=== PATIENT | female | born 1940 | race Caucasian/White ===

== ENCOUNTER 2018-01-11 02:56 | Inpatient (IN) | payer OTHER ==
[~2018-01-11] VITALS: Ht 154.9 cm; Wt 66.7 kg
[2018-01-11] VITALS (9 sets, daily range): BP systolic 160–188; BP diastolic 50–73
--- NOTE | ~2018-01-11 | CON ---
[place], [place] REPORT OF CONSULTATION NAME: CARLEEN CARD UNIT #: [id number] ROOM: 518 DOCTOR: WILL CHERYTOMASZ BIRTHDATE: [birth year] DOS: 01/13/2018 REASON FOR CONSULTATION: CHF and bradycardia. HISTORY OF PRESENT ILLNESS: The patient is a 77-year-old patient with history of congestive heart failure, COPD, valvular heart disease, diabetes, hypertension, presented to the Emergency Room for shortness of breath. Apparently, she woke up with sudden onset of shortness of breath as well as some abdominal pain as well as some fatigue. She has history of congestive heart failure, valvular heart disease, and hypertension. In the Emergency Room, she was found to be bradycardic and she was treated with diuretics and was admitted to the hospital and Cardiology consult for any further recommendations. Her main complaint is shortness of breath and some abdominal discomfort. At the time of examination, the patient was comfortable. Denies any chest pain, shortness of breath. No PND, no orthopnea. No palpitation or dizziness. No nausea or vomiting. REVIEW OF SYSTEMS: Review of the 10 system negative except as mentioned above. PAST MEDICAL HISTORY: 1. Valvular heart disease with aortic stenosis and mitral regurgitation. 2. Hypertension. 3. Diabetes type 2. 4. Chronic kidney disease. 5. Chronic obstructive pulmonary disease. 6. Sinus bradycardia. 7. Non-morbid obesity. 8. Osteoarthritis. 9. Chronic diastolic heart failure. PAST SURGICAL HISTORY: History of appendicectomy, cholecystectomy, hip replacement, back surgery and shoulder replacement. SOCIAL HISTORY: The patient is a former smoker, quit in December 2017. The patient does not drink, does not use illicit drugs. FAMILY HISTORY: Noncontributory due to her age and her medical history. Father from heart disease. Mother from stroke. ALLERGIES: Reviewed. HOME MEDICATIONS: Reviewed. PHYSICAL EXAMINATION: VITAL SIGNS: Blood pressure 151/48, pulse 56, respiration 16, weight 74.2 kilos with a BMI 30.9. GENERAL: Alert, comfortable, in no acute distress. HEENT: Pupils are round and equal. No jaundice. NECK: Supple, no distended neck veins, no carotid bruit. CHEST: Symmetrical, nontender. [place], [place] REPORT OF CONSULTATION NAME: CARLEEN CARD UNIT #: [id number] ROOM: 518 DOCTOR: WILL CHERY,TOMASZ BIRTHDATE: [birth year] LUNGS: Clear to auscultation bilaterally. HEART: Regular rhythm, no S3, grade 2/6 systolic murmur heard all over the precardium. ABDOMEN: Benign, nontender. Bowel sounds normal. EXTREMITIES: Showed no edema. Distal pulses are palpable. SKIN: Warm and dry. No cyanosis, no clubbing. RECTAL: Deferred. NEUROLOGIC: The patient is alert, oriented. PSYCHIATRIC: The patient is alert, oriented with good mood and effort. REVIEW OF THE DIAGNOSTIC TESTS: EKG showed sinus rhythm, sinus bradycardia, rate of 49. CBC, chemistry and imaging studies reviewed. Cardiac enzymes unremarkable. TSH was normal. Creatinine 1.5, magnesium 1.8. IMPRESSION: 1. Acute on chronic diastolic heart failure, mostly resolved. 2. Sinus bradycardia. We will discontinue her beta blockers and monitor heart rates TSH is normal. 3. Aortic stenosis. Echo showed moderate aortic stenosis. 4. Mild mitral regurgitation. 5. Hypertension. Monitor her blood pressures. 6. Chronic kidney disease. 7. Nonmorbid obesity. 8. Chronic obstructive pulmonary disease. The patient quit smoking last month. RECOMMENDATIONS: 1. A 2D echo was reviewed and the findings were discussed with her. 2. Increase hydralazine to 50 mg twice a day for blood pressure control since we had discontinued her metoprolol. 3. Lexiscan stress test today. 4. If the stress test is unremarkable and the patient is stable, she can be discharged home later today or tomorrow. 5. There is no family at bedside at the time of my examination. 6. Above treatment plan, I have discontinued her metoprolol including hydralazine and the stress test was discussed with her. TOMASZ SOLIS MD CM:CONSTR:REPORT OF CONSULTATION 0613 01/14/18 1036 interface
--- NOTE | ~2018-01-11 | PR ---
[place], [place] PROGRESS NOTE NAME: CARLEEN CARD UNIT #: [id number] ROOM: 518 DOCTOR: WILL CHERYRANDEEDULCE BIRTHDATE: [birth year] DOS: 01/15/2018 CARDIOLOGY FOLLOWUP VISIT NOTE REASON FOR VISIT: Congestive heart failure, valvular heart disease. SUBJECTIVE: The patient denies any chest pain. Her breathing is better. No PND, no orthopnea, no nausea or vomiting. No dizziness or syncope. REVIEW OF SYSTEMS: Review of the 8 systems negative except as mentioned above. PHYSICAL EXAMINATION: VITAL SIGNS: Blood pressure 123/52, pulse 75, respiratory rate is 20, , the patient in sinus rhythm. GENERAL: The patient is alert, comfortable, in no acute distress. HEAD AND NECK: Neck supple, no distended neck veins, no carotid bruit. Pupils are round and equal. No jaundice. CHEST: Symmetrical, nontender. LUNGS: Clear to auscultation bilaterally. HEART: Regular rhythm, no S3. Grade 2/6 systolic murmur. No palpable thrills. ABDOMEN: Benign, nontender. Bowel sounds normal. EXTREMITIES: Showed 1+ edema and distal pulses are palpable. SKIN: Warm and dry. No cyanosis, no clubbing. MEDICATIONS AND LABORATORIES: Reviewed. IMPRESSION: New onset atrial fibrillation, currently sinus rhythm. The patient was on renal dose, adjusted on Xarelto. Discontinue intravenous Cardizem and started on p.o. Cardizem 120 mg once daily, monitor heart rate and blood pressure. The patient developed recurrent bradycardia and she will need a permanent pacemaker. 2. Valvular heart disease, aortic stenosis, stable. 3. Abnormal stress test with inferior ischemia. The patient is asymptomatic, no chest pain and high risk for cardiac catheterization due to her chronic kidney disease and the patient would like to stay on the medical therapy at this time. If she does have recurrent chest pains, then she will need cardiac catheterization. 4. Chronic kidney disease. 5. Anemia. 6. Hypertension. 7. History of sinus bradycardia, resolved after discontinuing the metoprolol. 8. Continue current medication 9. She can be discharged home from the cardiac standpoint and we will follow her in the office in 1-2 weeks. 10. There is no family at the bedside at the time of examination. [place], [place] PROGRESS NOTE NAME: CARLEEN CARD UNIT #: [id number] ROOM: 518 DOCTOR: TOAMSZ SOLIS MD BIRTHDATE: [birth year] TOMASZ SOLIS MD CM:PNTRANS [id number] TOMASZ SOLIS MD 01/16/18105 interface
--- NOTE | ~2018-01-11 | ST ---
[place], [place] EXERCISE STRESS TEST REPORT NAME: CARLEEN CARD UNIT #: [id number] ROOM: 518 DOCTOR: WILL CHERY,TOMASZ BIRTHDATE: [birth year] DOS: 01/13/2018 REASON FOR TEST: The patient with congestive heart failure and valvular heart disease. PHYSICAL EXAMINATION: NECK: Supple. LUNGS: Clear anteriorly. HEART: Regular rhythm, grade 2/6 systolic murmur. PROTOCOL: Lexiscan protocol. Maximum heart rate 100, peak blood pressure 144/38. SYMPTOMS: The patient with chest pain. ELECTROCARDIOGRAM: Resting EKG sinus rhythm with nonspecific ST-T changes. Stress EKG showed inferolateral ST depression 0.5-1 mm, partially resolved. Clinically, the patient is chest pain free. CONCLUSION: Clinically, the patient was chest pain free. EKG showed 0.5-[address] depression in the inferolateral leads. POST-STRESS COMPLICATIONS: None. The patient received a total of 0.4 mg Lexiscan. TOMASZ SOLIS MD CM:STRESS:EXERCISE STRESS TEST REPORT [id number] TOMASZ SOLIS MD
--- NOTE | ~2018-01-11 | PR ---
[place], [place] PROGRESS NOTE NAME: CARLEEN CARD UNIT #: [id number] ROOM: 518 DOCTOR: WILL CHERY,TOMASZ BIRTHDATE: [birth year] DOS: 01/14/2018 REASON FOR VISIT: Bradycardia and congestive heart failure. SUBJECTIVE: The patient denies any chest pain, dizziness or palpitations. No PND, no orthopnea. She was seen by Dr. Phillips for her renal condition. REVIEW OF SYSTEMS: Review of the 10 systems negative except as mentioned above. PHYSICAL EXAMINATION: VITAL SIGNS: Blood pressure 146/60, pulse 130 at the time of examination, respirations 18, weight 66.7 kilos. RHYTHM STRIPS: The patient was sinus rhythm and currently in atrial fibrillation with rapid ventricular. GENERAL: The patient is alert, oriented, no acute distress. She ____ her heart is racing. HEENT: Pupils are round and equal. No jaundice. NECK: Supple, no distended neck veins, no carotid bruit. CHEST: Symmetrical, nontender. LUNGS: Few scattered rhonchi. HEART: Irregularly irregular, grade 2/6 systolic ejection murmur. No S3. ABDOMEN: Benign, nontender. Bowel sounds normal. EXTREMITIES: Showed no edema. Distal pulses palpable. SKIN: Warm and dry. No cyanosis, no clubbing. Medications and her labs are reviewed. IMPRESSION: 1. New onset atrial fibrillation with rapid ventricular rate. 2. Abnormal stress test with inferior wall ischemia. 3. Sinus bradycardia, resolved. 4. Anemia. 5. Chronic kidney disease. 6. Mitral regurgitation. 7. Acute on chronic diastolic heart failure, stable. RECOMMENDATIONS: 1. Rate control with IV Cardizem and monitor heart rate and blood pressures. 2. Her CHADS2-VASc score is high. She was also started on Xarelto 20 mg once a day. I would decrease to 50 mg due to her creatinine clearance less than 50, so change the Xarelto to 50 mg once daily. Risks, benefits of the Xarelto as well as complications discussed and she is agreeable. 3. Abnormal stress test findings are discussed. She appears to have inferior wall ischemia, but she is currently asymptomatic without any chest pain and also due to her chronic kidney disease, she will be high risk for any contrast procedures such as cardiac catheterization, angioplasty and stent and she would like to stay with medical therapy at this time; however, if develops any recurrent ____ chest pain, she will need a cardiac catheterization in the future. 4. Valvular heart disease, continue to monitor valvular heart disease and do [place], [place] PROGRESS NOTE NAME: CARLEEN CARD UNIT #: [id number] ROOM: 518 DOCTOR: WILL CHERY,TOMASZ BIRTHDATE: [birth year] echocardiograms as needed. 5. She is also following with a account services coordinator for her chronic kidney disease. 6. Possible discharge tomorrow if she is stable and if her rates are controlled. 7. There is no family at bedside at the time of my examination. TOMASZ SOLIS MD CM:PNLYNDA [id number] TOMASZ SOLIS MD 01/16/18 0330 interface
[2018-01-11 03:33] LABS: BASO # 0.1 10*3/uL (0.0-0.1); BASO % 0.6 % (0.0-1.0); EOS # 0.2 10*3/uL (0.0-0.4); EOS % 2.6 % (1.0-4.0); HEMATOCRIT 31.2 % (37.0-47.0); HEMOGLOBIN 9.9 g/dl (12.0-16.0); LYMPH # 1.6 10*3/uL (1.3-4.4); MEAN CORPUSCULAR HGB 28.9 pg (27.0-31.0); MEAN CORPUSCULAR HGB CONC 31.7 g/dl (33.0-37.0); MEAN PLATELET VOLUME 8.6 fl (9.6-12.3); MONO # 0.7 10*3/uL (0.1-1.0); MONO % 7.7 % (3.0-9.0); NEUT # 5.9 10*3/uL (2.3-7.9); NEUT % 69.6 % (47.0-73.0); PLATELET COUNT AUTOMATED 273 10*3/uL (130-400); RED BLOOD COUNT 3.43 10*6/uL (4.10-5.10); RED CELL DISTRI WIDTH 13.2 % (0-14.5); WHITE BLOOD COUNT 8.5 10*3/uL (4.8-10.8)
[2018-01-11 03:49] LABS: ALBUMIN 3.4 gm/dl (3.1-4.5); ALKALINE PHOSPHATASE 120 U/L (45-117); BUN 31 mg/dl (7-24); CHLORIDE 102 mmol/L (98-107); CREATININE 1.62 mg/dL (0.55-1.02); LIPASE 104 U/L (73-393); POTASSIUM 4.1 mmol/L (3.5-5.1); SGOT/AST 21 IU/L (3-35); SGPT/ALT 19 U/L (12-78); SODIUM 137 mmol/L (136-145); TOTAL PROTEIN 6.8 gm/dL (6.4-8.2)
[2018-01-11 03:51] LABS: TROPONIN I < 0.015 ng/ml (<0.045)
[2018-01-11 03:55] LABS: BILIRUBIN NEGATIVE (NEGATIVE); BLOOD NEGATIVE (NEGATIVE); CLARITY CLEAR (CLEAR); COLOR YELLOW (YELLOW); GLUCOSE NEGATIVE (NEGATIVE); KETONE NEGATIVE (NEGATIVE); LEUKO ESTERASE NEGATIVE (NEGATIVE); NITRITE NEGATIVE (NEGATIVE); SPECIFIC GRAVITY 1.015 (1.005-1.030); UROBILINOGEN 0.2 E.U./dl (0.2-1.0)
[2018-01-11] MEDS ORDERED: CLONIDINE0.3 MG PO (17:21)
[2018-01-11] MEDS ORDERED: HYDR25T PO (17:22)
[2018-01-11] MEDS ORDERED: AMLODIPINE BESY10 MG PO (17:22)
[2018-01-11] MEDS ORDERED: APRESOLINE25 MG PO (17:23)
[2018-01-11] MEDS ORDERED: LEVOXYL112 MCG PO (17:23)
[2018-01-11] MEDS ORDERED: TOPROL XL25 MG PO (17:23)
[2018-01-11] MEDS ORDERED: MIRAPEX0.25 M1 PO (17:24)
[2018-01-11] MEDS ORDERED: PRILOSEC20 M1 PO (17:24)
[2018-01-11] MEDS ORDERED: SIMVASTATIN20 MG PO (17:24)
[2018-01-11] MEDS ORDERED: VICO75300 PO (17:25)
[2018-01-11] MEDS ORDERED: IRON18 MG PO (17:25)
[2018-01-11] MEDS ORDERED: VITAMIN D-32000 UNIT PO (17:26)
[2018-01-12] VITALS (8 sets, daily range): BP systolic 152–228; BP diastolic 50–80
[2018-01-12 07:20] LABS: CREATININE 1.51 mg/dL (0.55-1.02); PHOSPHOROUS 2.9 mg/dL (2.5-4.9); POTASSIUM 3.4 mmol/L (3.5-5.1)
[2018-01-12 07:23] LABS: BASO % 0.2 % (0.0-1.0); HEMATOCRIT 32.2 % (37.0-47.0); HEMOGLOBIN 10.2 g/dl (12.0-16.0); LYMPH % 17.3 % (27.0-41.0); MEAN CELL VOLUME 89.7 fl (81.0-99.0); MEAN CORPUSCULAR HGB 28.4 pg (27.0-31.0); MEAN CORPUSCULAR HGB CONC 31.7 g/dl (33.0-37.0); MEAN PLATELET VOLUME 9.2 fl (9.6-12.3); MONO # 0.9 10*3/uL (0.1-1.0); MONO % 7.8 % (3.0-9.0); NEUT # 8.3 10*3/uL (2.3-7.9); NEUT % 74.3 % (47.0-73.0); PLATELET COUNT AUTOMATED 307 10*3/uL (130-400); RED BLOOD COUNT 3.59 10*6/uL (4.10-5.10); RED CELL DISTRI WIDTH 13.2 % (0-14.5); WHITE BLOOD COUNT 11.2 10*3/uL (4.8-10.8)
[2018-01-12 07:28] LABS: FREE T4 1.18 ng/dl (0.76-1.46); THYROID STIM HORMONE (HS) 0.434 uIU/ml (0.358-4.75)
[2018-01-12 09:17] LABS: VITAMIN D, 25-HYDROXY 24.9 ng/mL (30-100)
[2018-01-13] VITALS: BP 151/48
[2018-01-13 08:00] VITALS: BP 200/80
[2018-01-13 12:00] VITALS: BP 149/60
[2018-01-13 12:05] LABS: BASO # 0.1 10*3/uL (0.0-0.1); BASO % 0.6 % (0.0-1.0); EOS # 0.1 10*3/uL (0.0-0.4); EOS % 1.1 % (1.0-4.0); HEMATOCRIT 33.3 % (37.0-47.0); HEMOGLOBIN 10.6 g/dl (12.0-16.0); LYMPH # 1.6 10*3/uL (1.3-4.4); LYMPH % 19.3 % (27.0-41.0); MEAN CELL VOLUME 89.5 fl (81.0-99.0); MEAN CORPUSCULAR HGB 28.5 pg (27.0-31.0); MEAN CORPUSCULAR HGB CONC 31.8 g/dl (33.0-37.0); MEAN PLATELET VOLUME 8.6 fl (9.6-12.3); MONO # 0.8 10*3/uL (0.1-1.0); MONO % 9.2 % (3.0-9.0); NEUT # 5.7 10*3/uL (2.3-7.9); NEUT % 69.4 % (47.0-73.0); PLATELET COUNT AUTOMATED 290 10*3/uL (130-400); RED BLOOD COUNT 3.72 10*6/uL (4.10-5.10); RED CELL DISTRI WIDTH 13.2 % (0-14.5); WHITE BLOOD COUNT 8.2 10*3/uL (4.8-10.8)
[2018-01-13 12:28] LABS: CREATININE 1.48 mg/dL (0.55-1.02); POTASSIUM 3.1 mmol/L (3.5-5.1)
[2018-01-13 16:00] VITALS: BP 120/62
[2018-01-13 20:00] VITALS: BP 146/64
[2018-01-14] VITALS: BP 168/64
[2018-01-14 08:00] VITALS: BP 144/75
[2018-01-14 09:20] LABS: CREATININE 1.62 mg/dL (0.55-1.02); PHOSPHOROUS 3.8 mg/dL (2.5-4.9); POTASSIUM 3.9 mmol/L (3.5-5.1)
[2018-01-14 09:23] LABS: ALBUMIN 3.5 gm/dl (3.1-4.5)
[2018-01-14 12:00] VITALS: BP 148/60
[2018-01-14 16:00] VITALS: BP 154/77
[2018-01-14 20:00] VITALS: BP 142/57
[2018-01-15] VITALS: BP 123/52
[2018-01-15 07:34] LABS: POTASSIUM 3.7 mmol/L (3.5-5.1)
[2018-01-15 07:35] LABS: CREATININE 1.83 mg/dL (0.55-1.02)
[2018-01-15 08:00] VITALS: BP 148/55
[2018-01-15 12:00] VITALS: BP 146/60
[2018-01-15] MEDS ORDERED: HYDRALAZINE HYD50 MG PO (13:57)
[2018-01-15] MEDS ORDERED: LASIX20 MG PO (13:57)
[2018-01-15] MEDS ORDERED: XARE15TA PO (13:57)
[2018-01-15] MEDS ORDERED: CARDIZEM120 MG PO (13:57)
[2018-01-15 16:00] VITALS: BP 130/56
== END 2018-01-15 17:20 | disposition home or self-care (01) | DRG 291 ==
LOC: ED 02:56 → EDHOLD 04:09 → 5E 04:09
PROVIDERS: Emergency Medicine Emergency Medical Services; Internal Medicine; Student in an Organized Health Care Education/Training Program
PROC: 4A02XM4 Measurement of Cardiac Total Activity, External Approach (ICD-10-PCS; principal; 2018-01-14)
DX: I13.0 Hypertensive heart and chronic kidney disease with heart failure and stage 1 through stage 4 chronic kidney disease, or unspecified chronic kidney disease (principal); N17.0 Acute kidney failure with tubular necrosis; I50.33 Acute on chronic diastolic (congestive) heart failure; E11.22 Type 2 diabetes mellitus with diabetic chronic kidney disease; E11.65 Type 2 diabetes mellitus with hyperglycemia; I48.91 Unspecified atrial fibrillation; D64.9 Anemia, unspecified; D72.810 Lymphocytopenia; E03.9 Hypothyroidism, unspecified; M19.90 Unspecified osteoarthritis, unspecified site; N18.9 Chronic kidney disease, unspecified; R00.1 Bradycardia, unspecified; I34.0 Nonrheumatic mitral (valve) insufficiency; M79.662 Pain in left lower leg; E66.9 Obesity, unspecified; F17.200 Nicotine dependence, unspecified, uncomplicated; J44.9 Chronic obstructive pulmonary disease, unspecified; I35.0 Nonrheumatic aortic (valve) stenosis; Z96.612 Presence of left artificial shoulder joint; Z96.611 Presence of right artificial shoulder joint; Z96.643 Presence of artificial hip joint, bilateral; Z88.0 Allergy status to penicillin; Z88.1 Allergy status to other antibiotic agents; Z82.49 Family history of ischemic heart disease and other diseases of the circulatory system; Z82.3 Family history of stroke; Z83.3 Family history of diabetes mellitus; Z80.1 Family history of malignant neoplasm of trachea, bronchus and lung; Z90.49 Acquired absence of other specified parts of digestive tract; Z90.710 Acquired absence of both cervix and uterus; Z68.31 Body mass index [BMI] 31.0-31.9, adult; Z79.84 Long term (current) use of oral hypoglycemic drugs

== ENCOUNTER → 2018-10-29 | Outpatient (CLI) | payer OTHER ==
[~2018-10-29] MED LIST: AMLODIPINE BESY10 MG PO; APRESOLINE25 MG PO; CARDIZEM120 MG PO; CLONIDINE0.3 MG PO; HYDR25T PO; HYDRALAZINE HYD50 MG PO; IRON18 MG PO; LASIX20 MG PO; LEVOXYL112 MCG PO; MIRAPEX0.25 M1 PO; PRILOSEC20 M1 PO; SIMVASTATIN20 MG PO; TOPROL XL25 MG PO; VICO75300 PO; VITAMIN D-32000 UNIT PO; XARE15TA PO
[2018-10-29 12:33] LABS: BASO % 0.4 % (0.0-1.0); EOS # 0.2 10*3/uL (0.0-0.4); EOS % 1.4 % (1.0-4.0); HEMATOCRIT 33.6 % (37.0-47.0); LYMPH # 1.8 10*3/uL (1.3-4.4); LYMPH % 16.9 % (27.0-41.0); MEAN CELL VOLUME 89.1 fl (81.0-99.0); MEAN CORPUSCULAR HGB 29.2 pg (27.0-31.0); MEAN CORPUSCULAR HGB CONC 32.7 g/dl (33.0-37.0); MEAN PLATELET VOLUME 9.3 fl (9.6-12.3); MONO # 0.8 10*3/uL (0.1-1.0); MONO % 7.5 % (3.0-9.0); NEUT # 7.6 10*3/uL (2.3-7.9); NEUT % 73.3 % (47.0-73.0); PLATELET COUNT AUTOMATED 321 10*3/uL (130-400); RED BLOOD COUNT 3.77 10*6/uL (4.10-5.10); RED CELL DISTRI WIDTH 13.8 % (0-14.5); WHITE BLOOD COUNT 10.4 10*3/uL (4.8-10.8)
[2018-10-29 12:54] LABS: ALBUMIN 3.1 gm/dl (3.1-4.5); CREATININE 1.57 mg/dL (0.55-1.02)
[2018-10-29 13:00] LABS: FREE T4 1.57 ng/dl (0.76-1.46); THYROID STIM HORMONE (HS) 0.251 uIU/ml (0.358-4.75)
== END | disposition home or self-care (01) ==
LOC: LAB 11:26
PROVIDERS: Family Medicine
DX: E11.9 Type 2 diabetes mellitus without complications (principal); E78.49 Other hyperlipidemia; E03.9 Hypothyroidism, unspecified

== ENCOUNTER 2019-03-05 18:49 | Inpatient (IN) | payer OTHER ==
[~2019-03-05] VITALS: Ht 154.9 cm; Wt 74.1 kg
--- NOTE | ~2019-03-05 | EKG ---
[place], [place] ELECTROCARDIOGRAM REPORT NAME: CARLEEN CARD UNIT #: [id number] ROOM: 422 DOCTOR: BENTON DRAFT REPORT BIRTHDATE: [birth year] [facility] Test Date: 2019-03-05 Test Time: 19:35:08 Pat Name: CARLEEN CARD Department: ER Room: 422 Gender: F Rn Lactation Consultant: Elijah Mena : 1940 Requested By: LUCÍA PÉREZ Order Number: [id number] Reading MD: Yordy Mir Measurements Intervals [place] Rate: 62 P: 40 KS: 177 QRS: 1 QRSD: 91 T: 52 QT: 462 QTc: 470 Interpretive Statements Sinus rhythm LVH with secondary repolarization abnormality Electronically Signed On 03-10-2019 12:53:13 PDT by Yordy Mir CM:EKGRPT:ELECTROCARDIOGRAM REPORT [id number] LUCÍA CULVER DRAFT REPORT LUCÍA PÉREZ DO
[2019-03-05 18:54] VITALS: BP 217/69
[2019-03-05 20:09] LABS: BASO % 0.3 % (0.0-1.0); EOS % 0.1 % (1.0-4.0); HEMATOCRIT 33.6 % (37.0-47.0); HEMOGLOBIN 11.1 g/dl (12.0-16.0); LYMPH # 0.6 10*3/uL (1.3-4.4); LYMPH % 5.4 % (27.0-41.0); MEAN CELL VOLUME 91.3 fl (81.0-99.0); MEAN CORPUSCULAR HGB 30.2 pg (27.0-31.0); MEAN PLATELET VOLUME 8.9 fl (9.6-12.3); MONO # 0.8 10*3/uL (0.1-1.0); MONO % 8.1 % (3.0-9.0); NEUT # 8.9 10*3/uL (2.3-7.9); NEUT % 85.5 % (47.0-73.0); PLATELET COUNT AUTOMATED 423 10*3/uL (130-400); RED BLOOD COUNT 3.68 10*6/uL (4.10-5.10); RED CELL DISTRI WIDTH 14.2 % (0-14.5); WHITE BLOOD COUNT 10.4 10*3/uL (4.8-10.8)
--- NOTE | 2019-03-05 20:14 | NUR ---
PT REPORTS RELIEF FROM N/V AND PAIN HAS RESOLVED.
[2019-03-05 20:24] LABS: ALBUMIN 3.2 gm/dl (3.1-4.5); ALKALINE PHOSPHATASE 673 U/L (45-117); BUN 27 mg/dl (7-24); CHLORIDE 100 mmol/L (98-107); CREATININE 1.78 mg/dL (0.55-1.02); LIPASE 107 U/L (73-393); POTASSIUM 3.2 mmol/L (3.5-5.1); SGOT/AST 665 IU/L (3-35); SGPT/ALT 426 U/L (12-78); SODIUM 138 mmol/L (136-145); TOTAL PROTEIN 7.5 gm/dL (6.4-8.2)
[2019-03-05 20:26] LABS: TROPONIN I < 0.015 ng/ml (<0.045)
[2019-03-05 20:31] LABS: BILIRUBIN NEGATIVE (NEGATIVE); BLOOD NEGATIVE (NEGATIVE); CLARITY CLEAR (CLEAR); COLOR YELLOW (YELLOW); GLUCOSE NEGATIVE (NEGATIVE); KETONE NEGATIVE (NEGATIVE); LEUKO ESTERASE NEGATIVE (NEGATIVE); NITRITE NEGATIVE (NEGATIVE); SPECIFIC GRAVITY 1.015 (1.005-1.030)
[2019-03-05 20:37] LABS: BACTERIA TRACE; WBC 0-2 wbc/hpf (0-5)
[2019-03-05 20:57] VITALS: BP 188/62
[2019-03-05 23:05] VITALS: BP 190/64
--- NOTE | 2019-03-05 23:34 | NUR ---
PT RESTING IN BED.DENIES ANY NEEDS.PT STATES SHE TAKES BP MEDICATION AT HOME IN EVENING.FAMILY AT BEDSIDE.PT UPDATED ON CURRENT PLAN OF CARE.
[2019-03-06] VITALS (8 sets, daily range): BP systolic 140–220; BP diastolic 31–78
--- NOTE | 2019-03-06 00:40 | NUR ---
ALUMINUM CONTAINER TESTER CONTACTED FOR MEDICATION PER EMAR ODER.
--- NOTE | 2019-03-06 01:06 | NUR ---
FAMILY PASSWORD "MOONLIGHT 1".
--- NOTE | 2019-03-06 01:12 | NUR ---
PT MEDICATED WITH 10MG HYDRALAZINE IV PER MD VERBAL ORDER.
--- NOTE | 2019-03-06 01:15 | NUR ---
A 78, admitted to , under the services of SHANKAR Najera DO with a diagnosis of TRANSAMINITIS, ABDOMINAL PAIN. Chief complaint is ABDOMINAL PAIN. Patient arrived via ambulatory from ER. Monitor applied. Initial assessment completed. Vital signs taken and recorded. SHANKAR NAJERA DO notified of admission to the unit. Orders received. See assessment for past medical history, medications and allergies. Patient and/or family oriented to unit. visitation policy reviewed. Clothing/patient valuable form completed. ARVIN ROBLES
[2019-03-06 01:48] LABS: BASO % 0.4 % (0.0-1.0); EOS % 0.4 % (1.0-4.0); HEMATOCRIT 33.3 % (37.0-47.0); HEMOGLOBIN 10.9 g/dl (12.0-16.0); LYMPH # 1.8 10*3/uL (1.3-4.4); LYMPH % 17.1 % (27.0-41.0); MEAN CELL VOLUME 90.7 fl (81.0-99.0); MEAN CORPUSCULAR HGB 29.7 pg (27.0-31.0); MEAN CORPUSCULAR HGB CONC 32.7 g/dl (33.0-37.0); MEAN PLATELET VOLUME 8.6 fl (9.6-12.3); MONO # 0.8 10*3/uL (0.1-1.0); MONO % 7.8 % (3.0-9.0); NEUT # 7.6 10*3/uL (2.3-7.9); NEUT % 73.9 % (47.0-73.0); PLATELET COUNT AUTOMATED 431 10*3/uL (130-400); RED BLOOD COUNT 3.67 10*6/uL (4.10-5.10); RED CELL DISTRI WIDTH 14.2 % (0-14.5); WHITE BLOOD COUNT 10.3 10*3/uL (4.8-10.8)
[2019-03-06 02:04] LABS: ALBUMIN 3.3 gm/dl (3.1-4.5); CREATININE 1.7 mg/dL (0.55-1.02); PHOSPHOROUS 3.3 mg/dL (2.5-4.9); POTASSIUM 3.5 mmol/L (3.5-5.1); TOTAL PROTEIN 7.4 gm/dL (6.4-8.2)
[2019-03-06 02:06] LABS: FREE T4 1.69 ng/dl (0.76-1.46)
[2019-03-06 02:10] LABS: THYROID STIM HORMONE (HS) 0.412 uIU/ml (0.358-4.75)
--- NOTE | 2019-03-06 03:05 | NUR ---
CLONIDINE 0.3MG HELD D/T B/P 149/31. DR. HILARIO SAID TO HOLD MED.
[2019-03-06 06:58] LABS: VITAMIN D, 25-HYDROXY 23.1 ng/mL (30-100)
[2019-03-06 07:08] LABS: ALBUMIN 2.7 gm/dl (3.1-4.5); CREATININE 1.71 mg/dL (0.55-1.02); TOTAL PROTEIN 6.6 gm/dL (6.4-8.2)
[2019-03-06 07:10] LABS: POTASSIUM 4.5 mmol/L (3.5-5.1)
--- NOTE | 2019-03-06 07:52 | NUR ---
ATTEMPTED TO CALL DR. LUNA X3. KEEPS GOING TO VOICEMAIL. WILL CONTINUE TO TRY.
--- NOTE | 2019-03-06 10:44 | NUR ---
DR. LUNA NOTIFIED OF CONSULT FOR TRANSAMINITIS AND ABDOMINAL PAIN. NEW ORDER FOR SONOGRAM OF BILIARY (LIVER US) AND CALL HIM WITH RESULTS.
[2019-03-06] MEDS ORDERED: HYDRALAZINE HYD50 MG PO (14:10)
[2019-03-06] MEDS ORDERED: NORCO 5-325 TA1 EACH PO (14:10)
[2019-03-06] MEDS ORDERED: CARDIZEM CD240 M1 PO (14:11)
[2019-03-06] MEDS ORDERED: NEURONTIN300 MG PO (14:11)
--- NOTE | 2019-03-06 14:15 | NUR ---
[facility]ALTH SYSTEM PHARMACY CALLED AT THIS TIME TO VERIFY HOME MEDICATIONS DUE TO QUESTION IN PATIENTS CARDIZEM. MED REC PROVIDED BY PHARMACY DID NOT MATCH REVIEWED MED REC FROM LAST NIGHT. DR. ALEXANDER CALLED AT THIS TIME AND MADE AWARE OF MED REC BEING UP TO DATE WITH HEALTH SYSTEM PHARMACY.
--- NOTE | 2019-03-06 16:20 | NUR ---
DR. LUNA CALLED WITH RESULTS FROM LIVER. ORDERED TO REPEAT LFT'S ON FRIDAY AND CALL HIM WITH RESULTS.
--- NOTE | 2019-03-06 20:07 | NUR ---
DR. PAZ NOTIFIED OF MANUAL BLOOD PRESSURE OF 220/78.
--- NOTE | 2019-03-06 20:57 | NUR ---
PATIENT BENDING OVER CRYING IN SEVERE ABDOMINAL/FLANK PAIN. SHE SAID IT FELT LIKE IT DID WHEN SHE WAS IN THE ER. DR. PAZ NOTIFIED AND PATIENT GIVEN DILAUDID 1MG. WILL MONITOR FOR EFFECTIVENESS. CALL LIGHT IN REACH.
--- NOTE | 2019-03-06 21:10 | NUR ---
DILAUDID EFFECTIVE AT THIS TIME. PATIENT STATES SHE IS FEELING MUCH BETTER. WILL CONTINUE TO MONITOR.
[2019-03-07] VITALS: BP 173/45
[2019-03-07 06:57] LABS: ALBUMIN 2.6 gm/dl (3.1-4.5); CREATININE 1.44 mg/dL (0.55-1.02); POTASSIUM 3.8 mmol/L (3.5-5.1); TOTAL PROTEIN 6.1 gm/dL (6.4-8.2)
[2019-03-07 07:07] LABS: BASO % 0.3 % (0.0-1.0); EOS # 0.1 10*3/uL (0.0-0.4); EOS % 0.6 % (1.0-4.0); HEMATOCRIT 29.7 % (37.0-47.0); HEMOGLOBIN 9.2 g/dl (12.0-16.0); LYMPH # 1.3 10*3/uL (1.3-4.4); LYMPH % 17.1 % (27.0-41.0); MEAN CELL VOLUME 93.7 fl (81.0-99.0); MEAN PLATELET VOLUME 9.3 fl (9.6-12.3); MONO # 0.6 10*3/uL (0.1-1.0); MONO % 8.2 % (3.0-9.0); NEUT # 5.6 10*3/uL (2.3-7.9); NEUT % 73.2 % (47.0-73.0); PLATELET COUNT AUTOMATED 355 10*3/uL (130-400); RED BLOOD COUNT 3.17 10*6/uL (4.10-5.10); RED CELL DISTRI WIDTH 14.6 % (0-14.5); WHITE BLOOD COUNT 7.7 10*3/uL (4.8-10.8)
[2019-03-07 08:00] VITALS: BP 178/80
--- NOTE | 2019-03-07 08:58 | NUR ---
ATTEMPTED TO CALL DR. LUNA AT THIS TIME TO UPDATE HIM ON PATIENTS CONDITION AND MORNING LABS REQUESTED BY DR. CUNHA. NO ANSWER FROM DR. LUNA AT THIS TIME.
--- NOTE | 2019-03-07 09:33 | NUR ---
SPOKE WITH DR. LUNA AT THIS TIME. UPDATED ON PATIENTS CONDITION AND MORNING LABS. STATES THAT HE THINKS PATIENT IS OKAY AND NOTHING NEEDS TO BE DONE AT THIS TIME. ORDERED REPEAT LFTS IN THE MORNING AND CALL HIM WITH THE RESULTS. NO NEW ORDERS RECIEVED AT THIS TIME.
[2019-03-07 12:00] VITALS: BP 167/41
[2019-03-07 13:05] LABS: HEPATITIS B SURFACE AG Negative (Negative); HEPATITIS C VIRUS ANTIBODY <0.1 s/co (0.0-0.9)
--- NOTE | 2019-03-07 18:01 | NUR ---
PATIENT PUT CERTIFIED PROFESSIONAL MIDWIFE LIGHT, STATED SHE FELT LIKE SHE WASNT GETTING ENOUGH OXYGEN. O2 SAT 96% AT THIS TIME ON 2L NC. RESPIRATIONS LABORED. LUNG SOUNDS CLEAR T/O. DR. ALEXANDER CALLED AND NOTIFIED AT THIS TIME. STATED HE WOULD COME SEE PATIENT.
[2019-03-07 18:07] VITALS: BP 178/80
[2019-03-07 20:00] VITALS: BP 155/52
--- NOTE | 2019-03-07 20:00 | NUR ---
SITTING UP IN CHAIR IN ROOM. 02 INTACT AT 2LPM VIA NASAL CANNULA; PT. VOICES NO C/O AT THIS TIME. LUNGS CLEAR BILATERALLY WITH NO COUGH NOTED AT THIS TIME. 02 SATS ARE 97%. CALL LIGHT WITHIN REACH.
--- NOTE | 2019-03-07 22:00 | NUR ---
TOOK MEDICATIONS WITHOUT DIFFICULTY; VOICES NO C/O AT THIS TIME. CALL LIGHT REMAINS WITHIN REACH.
[2019-03-08] VITALS (7 sets, daily range): BP systolic 146–199; BP diastolic 47–126
[2019-03-08 06:26] LABS: BASO % 0.3 % (0.0-1.0); EOS # 0.1 10*3/uL (0.0-0.4); EOS % 0.9 % (1.0-4.0); HEMATOCRIT 28.6 % (37.0-47.0); HEMOGLOBIN 8.9 g/dl (12.0-16.0); LYMPH # 1.5 10*3/uL (1.3-4.4); LYMPH % 16.6 % (27.0-41.0); MEAN CELL VOLUME 94.4 fl (81.0-99.0); MEAN CORPUSCULAR HGB 29.4 pg (27.0-31.0); MEAN CORPUSCULAR HGB CONC 31.1 g/dl (33.0-37.0); MEAN PLATELET VOLUME 9.1 fl (9.6-12.3); MONO # 0.7 10*3/uL (0.1-1.0); MONO % 8.1 % (3.0-9.0); NEUT # 6.4 10*3/uL (2.3-7.9); NEUT % 73.5 % (47.0-73.0); PLATELET COUNT AUTOMATED 332 10*3/uL (130-400); RED BLOOD COUNT 3.03 10*6/uL (4.10-5.10); RED CELL DISTRI WIDTH 14.8 % (0-14.5); WHITE BLOOD COUNT 8.8 10*3/uL (4.8-10.8)
--- NOTE | 2019-03-08 06:30 | NUR ---
RESTING IN BED WITH EYES CLOSED. IV FLUIDS CONTINUE TO INFUSE INTO LEFT HAND WITHOUT DIFFICULTY; SITE ASYMPTOMATIC. CALL LIGHT WITHIN REACH.
--- NOTE | 2019-03-08 06:55 | NUR ---
IV started left hand with #24 protective cath after 1 attempts. Site prepped with Chloroprep. Sterile dressing applied. Patient tolerated procedure well. IV infusing at cc/hr. JEET EWING
[2019-03-08 07:06] LABS: ALBUMIN 2.5 gm/dl (3.1-4.5); CREATININE 1.37 mg/dL (0.55-1.02); POTASSIUM 3.7 mmol/L (3.5-5.1); TOTAL PROTEIN 6.1 gm/dL (6.4-8.2)
--- NOTE | 2019-03-08 19:37 | NUR ---
Shift chart check completed.24 HR chart check completed.
--- NOTE | 2019-03-08 20:46 | NUR ---
PT WAS ON THE PHONE DURING BEDSIDE REPORT. ON ASSESSMENT SHE'S SITTING IN CHAIR HAVING HS SNACK. DENIES PAIN/SOB/NAUSEA. SEE ALL APPROPRIATE INTERVENTIONS.
[2019-03-09] VITALS: BP 160/53
--- NOTE | 2019-03-09 03:38 | NUR ---
SLEEPING EASILY WITHOUT DISTRESS.
--- NOTE | 2019-03-09 04:26 | NUR ---
AWAKE AND AMBULATED TO BATHROOM WITH HER WALKER. DYSPNEIC WITH EXERTION ONLY.
--- NOTE | 2019-03-09 07:04 | NUR ---
DR LUNA CALLED TO CHECK ON PT. DAY SHIFT TO CALL WITH AM LABS.
[2019-03-09 07:10] LABS: BASO % 0.5 % (0.0-1.0); EOS # 0.1 10*3/uL (0.0-0.4); EOS % 1.5 % (1.0-4.0); HEMATOCRIT 27.6 % (37.0-47.0); HEMOGLOBIN 8.6 g/dl (12.0-16.0); LYMPH # 1.2 10*3/uL (1.3-4.4); LYMPH % 14.6 % (27.0-41.0); MEAN CELL VOLUME 94.5 fl (81.0-99.0); MEAN CORPUSCULAR HGB 29.5 pg (27.0-31.0); MEAN CORPUSCULAR HGB CONC 31.2 g/dl (33.0-37.0); MEAN PLATELET VOLUME 9.5 fl (9.6-12.3); MONO # 0.7 10*3/uL (0.1-1.0); NEUT % 73.5 % (47.0-73.0); PLATELET COUNT AUTOMATED 352 10*3/uL (130-400); RED BLOOD COUNT 2.92 10*6/uL (4.10-5.10); RED CELL DISTRI WIDTH 15.1 % (0-14.5); WHITE BLOOD COUNT 8.2 10*3/uL (4.8-10.8)
[2019-03-09 07:13] LABS: ALBUMIN 2.7 gm/dl (3.1-4.5); CREATININE 1.4 mg/dL (0.55-1.02); POTASSIUM 3.6 mmol/L (3.5-5.1); TOTAL PROTEIN 6.2 gm/dL (6.4-8.2)
--- NOTE | 2019-03-09 07:54 | NUR ---
DR LUNA MADE AWARE OF LFT RESULTS, PT FOR EGD TOMORROW.
[2019-03-09 08:00] VITALS: BP 177/51
--- NOTE | 2019-03-09 09:00 | NUR ---
Consulting Senior Practice Director in to talk to patient. Patient states lives at home with family. There are ffew steps in the home. Physician: daxa Pharmacy: [facility] Home health services: none Patient's level of ADLs: INDEPENDENT Patient has working utilities: all working DME: home oxygen, no portable tanks, nebulizer from [facility] Follow-up physician's appointment after d/c: will be made by hospitalist nurse director upon discharge Does patient want to access PORTAL?: no Discharge plan discussed with patient, patient lives at home with family, she is independent in adls and ambualtion, patient states she will be going home when able and denies any home needs. MALLORY MCDONALD
[2019-03-09] MEDS ORDERED: PRINIVIL10 MG PO (09:05)
[2019-03-09] MEDS ORDERED: HYDR12.5C PO (09:05)
--- NOTE | 2019-03-09 11:06 | NUR ---
Discharge instructions reviewed with patient/family. Patient receptive and verbalizes understanding. Follow-up care arranged. Written instructions given to patient/family. IV site removed. Pt trasnported via wheelchair. JILLIAN SOARES
== END 2019-03-09 11:06 | disposition home or self-care (01) | DRG 441 ==
LOC: ED 18:49 → EDHOLD 23:57 → 4E 23:57
PROVIDERS: Emergency Medicine; Family Medicine; Internal Medicine; Student in an Organized Health Care Education/Training Program; ADMIT Internal Medicine
DX: K72.00 Acute and subacute hepatic failure without coma (principal); N17.0 Acute kidney failure with tubular necrosis; E44.1 Mild protein-calorie malnutrition; K72.90 Hepatic failure, unspecified without coma; R10.9 Unspecified abdominal pain; E86.0 Dehydration; E03.9 Hypothyroidism, unspecified; R00.1 Bradycardia, unspecified; J44.9 Chronic obstructive pulmonary disease, unspecified; I48.91 Unspecified atrial fibrillation; Z96.643 Presence of artificial hip joint, bilateral; Z96.612 Presence of left artificial shoulder joint; Z96.611 Presence of right artificial shoulder joint; M19.90 Unspecified osteoarthritis, unspecified site; E11.65 Type 2 diabetes mellitus with hyperglycemia; I16.0 Hypertensive urgency; Z53.29 Procedure and treatment not carried out because of patient's decision for other reasons; I11.0 Hypertensive heart disease with heart failure; I50.9 Heart failure, unspecified; Z90.49 Acquired absence of other specified parts of digestive tract; Z88.0 Allergy status to penicillin; Z88.1 Allergy status to other antibiotic agents; Z90.710 Acquired absence of both cervix and uterus; Z87.891 Personal history of nicotine dependence; Z82.49 Family history of ischemic heart disease and other diseases of the circulatory system; Z82.3 Family history of stroke; Z83.3 Family history of diabetes mellitus; Z80.1 Family history of malignant neoplasm of trachea, bronchus and lung; Z79.899 Other long term (current) drug therapy; Z79.890 Hormone replacement therapy; Z68.29 Body mass index [BMI] 29.0-29.9, adult

== ENCOUNTER → 2019-07-28 | Outpatient (CLI) | payer OTHER ==
[~2019-07-28] MED LIST changes: +CARDIZEM CD240 M1 PO; +HYDR12.5C PO; +NEURONTIN300 MG PO; +NORCO 5-325 TA1 EACH PO; +PRINIVIL10 MG PO
[2019-07-28 12:18] LABS: BASO # 0.1 10*3/uL (0.0-0.1); BASO % 0.7 % (0.0-1.0); EOS # 0.2 10*3/uL (0.0-0.4); EOS % 2.9 % (1.0-4.0); HEMATOCRIT 35.5 % (37.0-47.0); HEMOGLOBIN 11.4 g/dl (12.0-16.0); LYMPH # 1.9 10*3/uL (1.3-4.4); LYMPH % 24.7 % (27.0-41.0); MEAN CELL VOLUME 93.9 fl (81.0-99.0); MEAN CORPUSCULAR HGB 30.2 pg (27.0-31.0); MEAN CORPUSCULAR HGB CONC 32.1 g/dl (33.0-37.0); MEAN PLATELET VOLUME 9.4 fl (9.6-12.3); MONO # 0.7 10*3/uL (0.1-1.0); MONO % 8.5 % (3.0-9.0); NEUT # 4.8 10*3/uL (2.3-7.9); NEUT % 62.7 % (47.0-73.0); PLATELET COUNT AUTOMATED 303 10*3/uL (130-400); RED BLOOD COUNT 3.78 10*6/uL (4.10-5.10); RED CELL DISTRI WIDTH 13.3 % (0-14.5); WHITE BLOOD COUNT 7.7 10*3/uL (4.8-10.8)
[2019-07-28 12:48] LABS: ALBUMIN 3.6 gm/dl (3.1-4.5); CREATININE 1.7 mg/dL (0.55-1.02); PHOSPHOROUS 3.8 mg/dL (2.5-4.9); POTASSIUM 4.1 mmol/L (3.5-5.1); TOTAL PROTEIN 7.3 gm/dL (6.4-8.2)
[2019-07-28 13:10] LABS: URINE CREATININE RANDOM 13.9 mg/dL
[2019-07-28 13:20] LABS: PTH INTACT 104.5 pg/mL (18.5-88.0); VITAMIN D, 25-HYDROXY 17.8 ng/mL (30-100)
== END | disposition home or self-care (01) ==
LOC: LAB 11:36
PROVIDERS: Internal Medicine Nephrology
DX: I13.10 Hypertensive heart and chronic kidney disease without heart failure, with stage 1 through stage 4 chronic kidney disease, or unspecified chronic kidney disease (principal); E11.22 Type 2 diabetes mellitus with diabetic chronic kidney disease; N18.3 Chronic kidney disease, stage 3 (moderate)

== ENCOUNTER 2019-11-02 17:04 | Emergency (ER) | payer OTHER ==
[~2019-11-02] VITALS: Wt 66.2 kg
[2019-11-02 17:36] LABS: BASO # 0.1 10*3/uL (0.0-0.1); BASO % 0.6 % (0.0-1.0); EOS # 0.1 10*3/uL (0.0-0.4); EOS % 1.7 % (1.0-4.0); HEMATOCRIT 36.8 % (37.0-47.0); HEMOGLOBIN 12.7 g/dl (12.0-16.0); LYMPH # 1.5 10*3/uL (1.3-4.4); LYMPH % 17.3 % (27.0-41.0); MEAN CELL VOLUME 86.4 fl (81.0-99.0); MEAN CORPUSCULAR HGB 29.8 pg (27.0-31.0); MEAN CORPUSCULAR HGB CONC 34.5 g/dl (33.0-37.0); MEAN PLATELET VOLUME 9.9 fl (9.6-12.3); MONO # 0.7 10*3/uL (0.1-1.0); NEUT % 71.9 % (47.0-73.0); PLATELET COUNT AUTOMATED 298 10*3/uL (130-400); RED BLOOD COUNT 4.26 10*6/uL (4.10-5.10); RED CELL DISTRI WIDTH 12.4 % (0-14.5); WHITE BLOOD COUNT 8.4 10*3/uL (4.8-10.8)
[2019-11-02 17:50] LABS: ACT PARTIAL THROMBO TIME 27.6 SECONDS (20.0-32.1); INTERNATIONAL NORM RATIO 0.9 (2.0-3.5)
[2019-11-02 17:51] LABS: ALBUMIN 3.6 gm/dl (3.1-4.5); ALKALINE PHOSPHATASE 277 U/L (45-117); BUN 50 mg/dl (7-24); CHLORIDE 84 mmol/L (98-107); CREATININE 2.55 mg/dL (0.55-1.02); POTASSIUM 4.1 mmol/L (3.5-5.1); SGOT/AST 10 IU/L (3-35); SGPT/ALT 17 U/L (12-78); SODIUM 121 mmol/L (136-145); TOTAL PROTEIN 7.8 gm/dL (6.4-8.2)
[2019-11-02 17:59] LABS: TROPONIN I < 0.015 ng/ml (<0.045)
[2019-11-02 18:21] LABS: BILIRUBIN NEGATIVE (NEGATIVE); BLOOD NEGATIVE (NEGATIVE); CLARITY CLEAR (CLEAR); COLOR YELLOW (YELLOW); GLUCOSE 3+ (NEGATIVE); KETONE NEGATIVE (NEGATIVE)
[2019-11-02 18:22] LABS: LEUKO ESTERASE NEGATIVE (NEGATIVE); NITRITE NEGATIVE (NEGATIVE); UROBILINOGEN 0.2 E.U./dl (0.2-1.0)
[2019-11-02 18:36] LABS: RBC 0-2 rbc/hpf (0-2); WBC 0-2 wbc/hpf (0-5)
[2019-11-02 19:08] VITALS: BP 177/74
== END 2019-11-02 19:38 | disposition short-term general hospital (02) ==
LOC: ED 17:04
PROVIDERS: Emergency Medicine
DX: E11.00 Type 2 diabetes mellitus with hyperosmolarity without nonketotic hyperglycemic-hyperosmolar coma (NKHHC) (principal); I16.1 Hypertensive emergency; I11.0 Hypertensive heart disease with heart failure; I50.9 Heart failure, unspecified; R47.81 Slurred speech; R26.2 Difficulty in walking, not elsewhere classified; R53.1 Weakness; J44.9 Chronic obstructive pulmonary disease, unspecified; E03.9 Hypothyroidism, unspecified; Z88.0 Allergy status to penicillin; Z88.1 Allergy status to other antibiotic agents; Z79.899 Other long term (current) drug therapy; Z90.49 Acquired absence of other specified parts of digestive tract; Z90.710 Acquired absence of both cervix and uterus

== ENCOUNTER → 2020-07-27 | Outpatient (CLI) | payer OTHER ==
[2020-07-27 16:14] LABS: BASO % 0.4 % (0.0-1.0); EOS # 0.2 10*3/uL (0.0-0.4); EOS % 2.8 % (1.0-4.0); HEMATOCRIT 34.7 % (37.0-47.0); LYMPH % 23.1 % (27.0-41.0); MEAN CELL VOLUME 96.7 fl (81.0-99.0); MEAN CORPUSCULAR HGB 30.1 pg (27.0-31.0); MEAN CORPUSCULAR HGB CONC 31.1 g/dl (33.0-37.0); MEAN PLATELET VOLUME 9.9 fl (9.6-12.3); MONO # 0.7 10*3/uL (0.1-1.0); MONO % 8.2 % (3.0-9.0); NEUT # 5.6 10*3/uL (2.3-7.9); PLATELET COUNT AUTOMATED 352 10*3/uL (130-400); RED BLOOD COUNT 3.59 10*6/uL (4.10-5.10); RED CELL DISTRI WIDTH 11.9 % (0-14.5); WHITE BLOOD COUNT 8.6 10*3/uL (4.8-10.8)
[2020-07-27 16:36] LABS: ALBUMIN 3.5 gm/dl (3.1-4.5); CREATININE 3.22 mg/dL (0.55-1.02); FREE T4 1.43 ng/dl (0.76-1.46); POTASSIUM 4.8 mmol/L (3.5-5.1); TOTAL PROTEIN 7.5 gm/dL (6.4-8.2)
[2020-07-27 16:41] LABS: THYROID STIM HORMONE (HS) 0.888 uIU/ml (0.358-4.75)
== END | disposition home or self-care (01) ==
LOC: LAB 14:40
PROVIDERS: Family Medicine; ATTEND Internal Medicine Nephrology
DX: I13.10 Hypertensive heart and chronic kidney disease without heart failure, with stage 1 through stage 4 chronic kidney disease, or unspecified chronic kidney disease (principal); N18.30 Chronic kidney disease, stage 3 unspecified; M25.561 Pain in right knee; E78.2 Mixed hyperlipidemia; E03.9 Hypothyroidism, unspecified; E11.65 Type 2 diabetes mellitus with hyperglycemia

== ENCOUNTER 2020-08-06 23:02 | Inpatient (IN) | payer OTHER ==
[~2020-08-06] VITALS: Ht 154.9 cm; Wt 77.1 kg
[2020-08-06 23:06] VITALS: BP 240/90
--- NOTE | 2020-08-06 23:30 | NUR ---
PT. RESTING IN BED IN NO DISTRESS. RR EASY AND NONLABORED. CALL LIGHT IN REACH. WILL CONT TO MONITOR.
[2020-08-06 23:44] LABS: BASO % 0.4 % (0.0-1.0); EOS # 0.2 10*3/uL (0.0-0.4); EOS % 2.7 % (1.0-4.0); HEMATOCRIT 31.7 % (37.0-47.0); LYMPH # 1.2 10*3/uL (1.3-4.4); LYMPH % 14.1 % (27.0-41.0); MEAN CELL VOLUME 97.5 fl (81.0-99.0); MEAN CORPUSCULAR HGB 29.5 pg (27.0-31.0); MEAN CORPUSCULAR HGB CONC 30.3 g/dl (33.0-37.0); MEAN PLATELET VOLUME 9.6 fl (9.6-12.3); MONO # 0.6 10*3/uL (0.1-1.0); MONO % 7.2 % (3.0-9.0); NEUT # 6.4 10*3/uL (2.3-7.9); NEUT % 75.2 % (47.0-73.0); PLATELET COUNT AUTOMATED 309 10*3/uL (130-400); RED BLOOD COUNT 3.25 10*6/uL (4.10-5.10); WHITE BLOOD COUNT 8.5 10*3/uL (4.8-10.8)
[2020-08-06 23:53] LABS: INTERNATIONAL NORM RATIO 1.1 (2.0-3.5)
[2020-08-07] VITALS (14 sets, daily range): BP systolic 110–240; BP diastolic 52–96
[2020-08-07] LABS: ALBUMIN 3.2 gm/dl (3.1-4.5); CREATININE 1.8 mg/dL (0.55-1.02); POTASSIUM 4.1 mmol/L (3.5-5.1); TOTAL PROTEIN 7.1 gm/dL (6.4-8.2)
--- NOTE | 2020-08-07 00:30 | NUR ---
PT. RESTING IN BED WITH EYES CLOSED. RR EASY AND NONLABORED. CALL LIGHT IN REACH. WILL CONT TO MONITOR.
[2020-08-07 01:14] LABS: BILIRUBIN Negative (Negative); BLOOD Negative (Negative); CLARITY Clear (Clear); COLOR Yellow (Yellow); GLUCOSE Negative (Negative); KETONE Negative (Negative); LEUKO ESTERASE Negative (Negative); NITRITE Negative (Negative)
[2020-08-07 01:22] LABS: EPITHELIAL CELLS 16-20; RBC 0-2 rbc/hpf (0-2); WBC 0-2 wbc/hpf (0-5)
--- NOTE | 2020-08-07 01:30 | NUR ---
GAVE PT. WARM BLANKET. PT. RESTING IN BED WITH EYES CLOSED. RR EASY AND NONLABORED. CALL LIGHT IN REACH. WILL CONT TO MONITOR.
--- NOTE | 2020-08-07 02:30 | NUR ---
PT. RESTING IN BED WITH EYES CLOSED. RR EASY AND NONLABORED. CALL LIGHT IN REACH. WILL CONT TO MONITOR.
--- NOTE | 2020-08-07 03:32 | NUR ---
[facility] 79[facility] under the services of ROSA MARIA Mays DO with a diagnosis of CHF, SERINA. Chief complaint is SOB. Patient arrived via ambulatory from ER. Monitor applied. Initial assessment completed. Vital signs taken and recorded. ROSA MARIA MAYS DO notified of admission to the unit. Orders received. See assessment for past medical history, medications and allergies. Patient and/or family oriented to unit. [facility] visitation policy reviewed. Clothing/patient valuable form completed. KRYSTEN BOWER
[2020-08-07] MEDS ORDERED: POTASSIUM CHLO20 ME4 PO (03:33)
[2020-08-07] MEDS ORDERED: BASAG SOL SC (03:34)
[2020-08-07] MEDS ORDERED: NOVOLOG10 ML SC (03:34)
[2020-08-07] MEDS ORDERED: SIMVASTATIN20 MG PO (03:35)
[2020-08-07] MEDS ORDERED: PRAMIPEXOLE D0.25 MG PO (03:35)
[2020-08-07] MEDS ORDERED: FUROSEMIDE40 MG PO (03:36)
--- NOTE | 2020-08-07 04:03 | NUR ---
PT. UP AND TO BATHROOM. VOIDED 600CC.
--- NOTE | 2020-08-07 05:17 | NUR ---
PT. UP AND TO RESTROOM AGAIN. OUTPUT 600CC. PT. NOW RESTING IN BED. CALL LIGHT IN REACH. RR EASY AND NONLABORED. WILL CONT TO MONITOR.
--- NOTE | 2020-08-07 06:16 | NUR ---
CONSULT MADE TO .
[2020-08-07 06:20] LABS: BASO % 0.3 % (0.0-1.0); EOS # 0.2 10*3/uL (0.0-0.4); EOS % 2.9 % (1.0-4.0); HEMATOCRIT 28.8 % (37.0-47.0); LYMPH # 1.3 10*3/uL (1.3-4.4); LYMPH % 17.8 % (27.0-41.0); MEAN CELL VOLUME 96.3 fl (81.0-99.0); MEAN CORPUSCULAR HGB 30.1 pg (27.0-31.0); MEAN CORPUSCULAR HGB CONC 31.3 g/dl (33.0-37.0); MEAN PLATELET VOLUME 9.7 fl (9.6-12.3); MONO # 0.7 10*3/uL (0.1-1.0); MONO % 8.9 % (3.0-9.0); NEUT # 5.2 10*3/uL (2.3-7.9); NEUT % 69.7 % (47.0-73.0); PLATELET COUNT AUTOMATED 300 10*3/uL (130-400); RED BLOOD COUNT 2.99 10*6/uL (4.10-5.10); WHITE BLOOD COUNT 7.5 10*3/uL (4.8-10.8)
--- NOTE | 2020-08-07 06:24 | NUR ---
UNABLE TO PULL 0600 MEDS, SUPERVISION NOTIFIED.
[2020-08-07 06:32] LABS: ACT PARTIAL THROMBO TIME 29.3 SECONDS (20.0-32.1); INTERNATIONAL NORM RATIO 1.1 (2.0-3.5)
[2020-08-07 06:40] LABS: CREATININE 1.73 mg/dL (0.55-1.02); POTASSIUM 4.1 mmol/L (3.5-5.1)
--- NOTE | 2020-08-07 06:42 | NUR ---
PT. UP AND TO BATHROOM. VOIDED 600CC.
[2020-08-07 06:43] LABS: TOTAL PROTEIN 6.6 gm/dL (6.4-8.2)
--- NOTE | 2020-08-07 10:12 | NUR ---
SPOKE WITH DAUGHTER JOSIANE. SHE WAS UPSET THAT SHE WAS NOT ADMITTED TO [facility]. HER OTHER DAUGHTER MARK SAYS OTHERWISE. THERE ARE CONFLICTING STORIES. DR. PAZ NOTIFIED.
--- NOTE | 2020-08-07 12:31 | NUR ---
DR. PETERSEN AND DR. SANTOS HERE ON FLOOR AND NOTIFIED OF CONSULT
[2020-08-08] VITALS: BP 170/64
[2020-08-08 01:00] VITALS: BP 144/68
[2020-08-08 06:19] LABS: BASO % 0.5 % (0.0-1.0); EOS # 0.3 10*3/uL (0.0-0.4); EOS % 4.7 % (1.0-4.0); HEMATOCRIT 29.2 % (37.0-47.0); LYMPH # 1.5 10*3/uL (1.3-4.4); LYMPH % 24.6 % (27.0-41.0); MEAN CELL VOLUME 95.4 fl (81.0-99.0); MEAN CORPUSCULAR HGB 29.7 pg (27.0-31.0); MEAN CORPUSCULAR HGB CONC 31.2 g/dl (33.0-37.0); MEAN PLATELET VOLUME 9.4 fl (9.6-12.3); MONO # 0.6 10*3/uL (0.1-1.0); MONO % 9.5 % (3.0-9.0); NEUT # 3.6 10*3/uL (2.3-7.9); NEUT % 60.2 % (47.0-73.0); PLATELET COUNT AUTOMATED 295 10*3/uL (130-400); RED BLOOD COUNT 3.06 10*6/uL (4.10-5.10); RED CELL DISTRI WIDTH 11.9 % (0-14.5)
[2020-08-08 06:26] LABS: CREATININE 1.7 mg/dL (0.55-1.02); POTASSIUM 4.1 mmol/L (3.5-5.1)
[2020-08-08 08:00] VITALS: BP 178/53
--- NOTE | 2020-08-08 08:50 | NUR ---
PT RESTING IN BED. TOLERATED ROUTINE MED WITH NO PROBLEM. NO C/O AT THIS TIME. CALL LIGHT IN REACH. SEE SHIFT ASSESSMENT.
--- NOTE | 2020-08-08 09:00 | NUR ---
Poultry Farmer Meat in to talk to patient. Patient states lives at home with her son and [id number]-sa-[id number]. There are 0 steps in the home. There is a chair lift. Physician: Dr. Bharat Junior [facility] Home health services: none Patient's level of ADLs: MINIMAL ASSIST Patient has working utilities: yes DME: cane, walker, O2 @ 2L nc HS, portable O2 tanks, nebulizer, O2 supplier [facility] Follow-up physician's appointment after d/c: will be made by the hospitalist nurse director upon discharge Does patient want to access PORTAL?: no Discharge plan discussed with patient. She is sitting on the edge of her bed eating breakfast. She states she lives at home with her son and [id number]-ggt. She is independent in her ADLs and ambulates with either a cane or a walker. Discussed short term rehab and home health care services and she declines. CM will continue to follow for any discharge planning needs. When medically stable she will be discharged to home. She states her [id number] will provide transportation on discharge. JAYE MARTINEZ
--- NOTE | 2020-08-08 11:57 | NUR ---
PT RESTING IN BED WITH EYES CLOSED, AWAKENS EASILY. BSG-212, SEE EMAR. CALL LIGHT IN REACH.
[2020-08-08 12:00] VITALS: BP 129/79
[2020-08-08 15:47] VITALS: BP 132/85
--- NOTE | 2020-08-08 16:30 | NUR ---
PT RESTING IN BED. RESP-EASY AND REGULAR. BSG-99, SEE EMAR. NO C/O AT THIS TIME. CALL LIGHT IN REACH. SEE SHIFT ASSESSMENT.
--- NOTE | 2020-08-08 18:00 | NUR ---
TOLERATED ROUTINE MED WITH NO PROBLEM. CALL LIGHT IN REACH.
[2020-08-08 20:00] VITALS: BP 171/50
--- NOTE | 2020-08-08 20:10 | NUR ---
RESTING IN BED; VOICES NO C/O AT THIS TIME. BLOOD SUGAR 124; NO COVERAGE REQUIRED. CALL LIGHT WITHIN REACH.
[2020-08-09] VITALS: BP 137/36
--- NOTE | 2020-08-09 | NUR ---
RESTING IN BED WITH EYES CLOSED; CALL LIGHT WITHIN REACH.
--- NOTE | 2020-08-09 06:09 | NUR ---
BLOOD SUGAR 193; COVERAGE REQUIRED.
[2020-08-09 06:49] LABS: CREATININE 1.91 mg/dL (0.55-1.02); POTASSIUM 3.9 mmol/L (3.5-5.1)
[2020-08-09] MEDS ORDERED: CARVEDILOL3.125 MG PO (09:50)
[2020-08-09] MEDS ORDERED: LASIX20 MG PO (09:50)
--- NOTE | 2020-08-09 11:13 | NUR ---
Discharge instructions reviewed with patient/family. Patient receptive and verbalizes understanding. Follow-up care arranged. Written instructions given to patient/family. YADIRA DRAKE
== END 2020-08-09 11:13 | disposition home or self-care (01) | DRG 291 ==
LOC: ED 23:02 → EDHOLD 08-07 02:32 → 5E 08-07 02:32
PROVIDERS: Emergency Medicine; Internal Medicine; ADMIT Student in an Organized Health Care Education/Training Program; ATTEND Student in an Organized Health Care Education/Training Program
DX: I13.0 Hypertensive heart and chronic kidney disease with heart failure and stage 1 through stage 4 chronic kidney disease, or unspecified chronic kidney disease (principal); N17.0 Acute kidney failure with tubular necrosis; I50.33 Acute on chronic diastolic (congestive) heart failure; E44.0 Moderate protein-calorie malnutrition; N18.4 Chronic kidney disease, stage 4 (severe); I16.0 Hypertensive urgency; E03.9 Hypothyroidism, unspecified; I48.0 Paroxysmal atrial fibrillation; K21.9 Gastro-esophageal reflux disease without esophagitis; G62.9 Polyneuropathy, unspecified; E78.5 Hyperlipidemia, unspecified; D63.8 Anemia in other chronic diseases classified elsewhere; E87.8 Other disorders of electrolyte and fluid balance, not elsewhere classified; E66.9 Obesity, unspecified; R09.89 Other specified symptoms and signs involving the circulatory and respiratory systems; J44.9 Chronic obstructive pulmonary disease, unspecified; Z88.0 Allergy status to penicillin; Z88.1 Allergy status to other antibiotic agents; Z79.899 Other long term (current) drug therapy; Z79.4 Long term (current) use of insulin; Z90.710 Acquired absence of both cervix and uterus; Z90.49 Acquired absence of other specified parts of digestive tract; Z87.891 Personal history of nicotine dependence; Z82.3 Family history of stroke; Z83.3 Family history of diabetes mellitus

== ENCOUNTER → 2020-08-14 | Outpatient (CLI) | payer OTHER ==
[~2020-08-14] MED LIST changes: +BASAG SOL SC; +CARVEDILOL3.125 MG PO; +FUROSEMIDE40 MG PO; +NOVOLOG10 ML SC; +POTASSIUM CHLO20 ME4 PO; +PRAMIPEXOLE D0.25 MG PO
[2020-08-14 13:53] LABS: CREATININE 1.99 mg/dL (0.55-1.02); POTASSIUM 5.2 mmol/L (3.5-5.1)
== END | disposition home or self-care (01) ==
LOC: LAB 13:00
PROVIDERS: ATTEND Internal Medicine
DX: N17.0 Acute kidney failure with tubular necrosis (principal)

== ENCOUNTER → 2020-09-05 | Outpatient (CLI) | payer OTHER ==
[2020-09-05 15:40] LABS: CREATININE 2.51 mg/dL (0.55-1.02); POTASSIUM 5.2 mmol/L (3.5-5.1)
== END | disposition home or self-care (01) ==
LOC: LAB 14:58
PROVIDERS: ATTEND Registered Nurse
DX: I10 Essential (primary) hypertension (principal)

== ENCOUNTER → 2020-09-14 | Outpatient (CLI) | payer OTHER ==
[2020-09-14 16:47] LABS: CREATININE 2.16 mg/dL (0.55-1.02); POTASSIUM 3.9 mmol/L (3.5-5.1)
== END | disposition home or self-care (01) ==
LOC: LAB 14:47
PROVIDERS: ATTEND Registered Nurse
DX: I13.10 Hypertensive heart and chronic kidney disease without heart failure, with stage 1 through stage 4 chronic kidney disease, or unspecified chronic kidney disease (principal); E11.65 Type 2 diabetes mellitus with hyperglycemia; N18.9 Chronic kidney disease, unspecified; I50.9 Heart failure, unspecified

== ENCOUNTER 2020-10-04 22:41 | Emergency (ER) | payer OTHER ==
[~2020-10-04] VITALS: Ht 162.5 cm; Wt 90.7 kg
[2020-10-04 22:41] VITALS: BP 170/59
[2020-10-04 23:16] LABS: BASO % 0.3 % (0.0-1.0); EOS # 0.2 10*3/uL (0.0-0.4); EOS % 2.4 % (1.0-4.0); HEMATOCRIT 29.5 % (37.0-47.0); LYMPH # 1.6 10*3/uL (1.3-4.4); LYMPH % 18.3 % (27.0-41.0); MEAN CELL VOLUME 96.4 fl (81.0-99.0); MEAN CORPUSCULAR HGB 29.7 pg (27.0-31.0); MEAN CORPUSCULAR HGB CONC 30.8 g/dl (33.0-37.0); MEAN PLATELET VOLUME 9.5 fl (9.6-12.3); MONO # 0.7 10*3/uL (0.1-1.0); MONO % 7.8 % (3.0-9.0); NEUT # 6.1 10*3/uL (2.3-7.9); NEUT % 70.7 % (47.0-73.0); PLATELET COUNT AUTOMATED 297 10*3/uL (130-400); RED BLOOD COUNT 3.06 10*6/uL (4.10-5.10); RED CELL DISTRI WIDTH 12.1 % (0-14.5); WHITE BLOOD COUNT 8.6 10*3/uL (4.8-10.8)
[2020-10-04 23:31] LABS: ALBUMIN 3.1 gm/dl (3.1-4.5); CREATININE 2.25 mg/dL (0.55-1.02); POTASSIUM 3.1 mmol/L (3.5-5.1); TOTAL PROTEIN 6.9 gm/dL (6.4-8.2)
== END 2020-10-05 02:34 | disposition home or self-care (01) ==
LOC: ED 22:41
PROVIDERS: Internal Medicine
DX: D64.9 Anemia, unspecified (principal); N17.9 Acute kidney failure, unspecified; E87.6 Hypokalemia; R10.9 Unspecified abdominal pain; I13.0 Hypertensive heart and chronic kidney disease with heart failure and stage 1 through stage 4 chronic kidney disease, or unspecified chronic kidney disease; E11.22 Type 2 diabetes mellitus with diabetic chronic kidney disease; I50.9 Heart failure, unspecified; N18.30 Chronic kidney disease, stage 3 unspecified; M79.671 Pain in right foot; Z88.8 Allergy status to other drugs, medicaments and biological substances; Z79.899 Other long term (current) drug therapy

== ENCOUNTER → 2021-01-06 | Outpatient (CLI) | payer OTHER ==
[~2021-01-06] MED LIST changes: +ATORVASTATIN CA40 M1 PO; +CARVEDILOL6.25 MG PO; +ELIQUIS5 M1 PO; +HYDRALAZINE HC100 MG PO; +IMDUR SA30 MG PO; +PRESERVISION L1 EACH PO
[2021-01-06 11:57] LABS: ALBUMIN 3.5 gm/dl (3.1-4.5); CREATININE 2.06 mg/dL (0.55-1.02); POTASSIUM 3.1 mmol/L (3.5-5.1)
[2021-01-06 12:05] LABS: FREE T4 1.18 ng/dl (0.76-1.46); THYROID STIM HORMONE (HS) 1.24 uIU/ml (0.358-4.75); TOTAL PROTEIN 7.3 gm/dL (6.4-8.2)
== END | disposition home or self-care (01) ==
LOC: LAB 01-05 14:32
PROVIDERS: ATTEND Family Medicine
DX: E11.21 Type 2 diabetes mellitus with diabetic nephropathy (principal); E03.9 Hypothyroidism, unspecified; M54.32 Sciatica, left side

== ENCOUNTER 2021-01-12 00:11 | Observation (INO) | payer OTHER ==
[~2021-01-12] VITALS: Ht 154.9 cm; Wt 72.6 kg
[2021-01-12] VITALS (7 sets, daily range): BP systolic 148–197; BP diastolic 44–84
[~2021-01-12 00:11] MED LIST changes: -ATORVASTATIN CA40 M1 PO; -CARVEDILOL6.25 MG PO; -ELIQUIS5 M1 PO; -HYDRALAZINE HC100 MG PO; -IMDUR SA30 MG PO; -PRESERVISION L1 EACH PO
[2021-01-12 01:24] LABS: BASO % 0.4 % (0.0-1.0); EOS # 0.1 10*3/uL (0.0-0.4); HEMATOCRIT 32.9 % (37.0-47.0); LYMPH # 1.7 10*3/uL (1.3-4.4); LYMPH % 16.8 % (27.0-41.0); MEAN CORPUSCULAR HGB CONC 31.9 g/dl (33.0-37.0); MEAN PLATELET VOLUME 9.4 fl (9.6-12.3); MONO # 0.8 10*3/uL (0.1-1.0); MONO % 7.8 % (3.0-9.0); NEUT # 7.6 10*3/uL (2.3-7.9); NEUT % 73.3 % (47.0-73.0); PLATELET COUNT AUTOMATED 300 10*3/uL (130-400); WHITE BLOOD COUNT 10.3 10*3/uL (4.8-10.8)
[2021-01-12 01:32] LABS: INTERNATIONAL NORM RATIO 1.1 (2.0-3.5)
[2021-01-12 01:40] LABS: ALBUMIN 2.9 gm/dl (3.1-4.5); ALKALINE PHOSPHATASE 121 U/L (45-117); BUN 44 mg/dl (7-24); CHLORIDE 102 mmol/L (98-107); CREATININE 2.54 mg/dL (0.55-1.02); POTASSIUM 3.2 mmol/L (3.5-5.1); SGOT/AST 13 IU/L (3-35); SGPT/ALT 16 U/L (12-78); SODIUM 138 mmol/L (136-145); TOTAL PROTEIN 6.6 gm/dL (6.4-8.2)
[2021-01-12 01:44] LABS: TROPONIN I < 0.015 ng/ml (<0.045)
[2021-01-12 04:18] LABS: BASO % 0.3 % (0.0-1.0); EOS # 0.1 10*3/uL (0.0-0.4); EOS % 1.1 % (1.0-4.0); HEMATOCRIT 34.7 % (37.0-47.0); LYMPH # 2.6 10*3/uL (1.3-4.4); MEAN CORPUSCULAR HGB 29.8 pg (27.0-31.0); MEAN PLATELET VOLUME 9.3 fl (9.6-12.3); MONO # 0.9 10*3/uL (0.1-1.0); MONO % 8.5 % (3.0-9.0); NEUT # 7.2 10*3/uL (2.3-7.9); NEUT % 65.6 % (47.0-73.0); PLATELET COUNT AUTOMATED 322 10*3/uL (130-400); RED BLOOD COUNT 3.73 10*6/uL (4.10-5.10); RED CELL DISTRI WIDTH 12.9 % (0-14.5)
[2021-01-12 04:34] LABS: ALBUMIN 3.1 gm/dl (3.1-4.5); CREATININE 2.38 mg/dL (0.55-1.02); POTASSIUM 3.4 mmol/L (3.5-5.1); TOTAL PROTEIN 7.1 gm/dL (6.4-8.2)
[2021-01-12 04:35] LABS: FREE T4 1.12 ng/dl (0.76-1.46)
[2021-01-12 04:40] LABS: THYROID STIM HORMONE (HS) 1.18 uIU/ml (0.358-4.75)
[2021-01-12] MEDS ORDERED: HYDRALAZINE HC100 MG PO (08:25)
[2021-01-12] MEDS ORDERED: NEURONTIN300 MG PO (08:26)
[2021-01-12] MEDS ORDERED: IRON18 MG PO (08:26)
[2021-01-12] MEDS ORDERED: PRESERVISION L1 EACH PO (08:27)
[2021-01-13] VITALS: BP 144/45
[2021-01-13 06:26] LABS: POTASSIUM 3.7 mmol/L (3.5-5.1)
[2021-01-13 06:27] LABS: CREATININE 2.08 mg/dL (0.55-1.02)
[2021-01-13 06:28] LABS: BASO # 0.1 10*3/uL (0.0-0.1); BASO % 0.6 % (0.0-1.0); EOS # 0.3 10*3/uL (0.0-0.4); EOS % 3.3 % (1.0-4.0); HEMATOCRIT 32.3 % (37.0-47.0); LYMPH # 1.9 10*3/uL (1.3-4.4); LYMPH % 23.5 % (27.0-41.0); MEAN CELL VOLUME 93.1 fl (81.0-99.0); MEAN CORPUSCULAR HGB 29.4 pg (27.0-31.0); MEAN CORPUSCULAR HGB CONC 31.6 g/dl (33.0-37.0); MEAN PLATELET VOLUME 9.7 fl (9.6-12.3); MONO # 0.7 10*3/uL (0.1-1.0); MONO % 8.9 % (3.0-9.0); NEUT # 5.2 10*3/uL (2.3-7.9); NEUT % 63.2 % (47.0-73.0); PLATELET COUNT AUTOMATED 322 10*3/uL (130-400); RED BLOOD COUNT 3.47 10*6/uL (4.10-5.10); WHITE BLOOD COUNT 8.2 10*3/uL (4.8-10.8)
[2021-01-13 08:00] VITALS: BP 145/38
[2021-01-13] MEDS ORDERED: IMDUR SA30 MG PO (11:13)
[2021-01-13] MEDS ORDERED: CARVEDILOL6.25 MG PO (11:13)
[2021-01-13] MEDS ORDERED: ELIQUIS5 M1 PO (11:13)
[2021-01-13] MEDS ORDERED: ATORVASTATIN CA40 M1 PO (11:13)
== END 2021-01-13 12:54 | disposition home or self-care (01) ==
LOC: ED 00:11 → EDHOLD 02:44 → 5E 02:44
PROVIDERS: Emergency Medicine; Family Medicine; Internal Medicine; ADMIT Student in an Organized Health Care Education/Training Program; ATTEND Student in an Organized Health Care Education/Training Program
DX: R07.89 Other chest pain (principal); I48.0 Paroxysmal atrial fibrillation; E11.22 Type 2 diabetes mellitus with diabetic chronic kidney disease; E11.40 Type 2 diabetes mellitus with diabetic neuropathy, unspecified; I13.0 Hypertensive heart and chronic kidney disease with heart failure and stage 1 through stage 4 chronic kidney disease, or unspecified chronic kidney disease; N18.4 Chronic kidney disease, stage 4 (severe); I50.9 Heart failure, unspecified; J44.9 Chronic obstructive pulmonary disease, unspecified; K21.9 Gastro-esophageal reflux disease without esophagitis; E78.5 Hyperlipidemia, unspecified; E87.6 Hypokalemia; E86.0 Dehydration; R74.8 Abnormal levels of other serum enzymes; E44.1 Mild protein-calorie malnutrition; E11.65 Type 2 diabetes mellitus with hyperglycemia; D64.9 Anemia, unspecified; Z90.49 Acquired absence of other specified parts of digestive tract; Z79.899 Other long term (current) drug therapy; Z98.890 Other specified postprocedural states

== ENCOUNTER → 2021-01-23 | Outpatient (CLI) | payer OTHER ==
[~2021-01-23] MED LIST changes: +ATORVASTATIN CA40 M1 PO; +CARVEDILOL6.25 MG PO; +ELIQUIS5 M1 PO; +HYDRALAZINE HC100 MG PO; +IMDUR SA30 MG PO; +PRESERVISION L1 EACH PO
[2021-01-23 13:04] LABS: CREATININE 2.09 mg/dL (0.55-1.02); POTASSIUM 3.6 mmol/L (3.5-5.1)
== END | disposition home or self-care (01) ==
LOC: LAB 12:08
PROVIDERS: ATTEND Family Medicine
DX: N18.4 Chronic kidney disease, stage 4 (severe) (principal); E87.6 Hypokalemia

== ENCOUNTER → 2021-03-14 | Outpatient (CLI) | payer OTHER ==
[2021-03-14 13:53] LABS: BASO % 0.5 % (0.0-1.0); EOS # 0.2 10*3/uL (0.0-0.4); EOS % 2.9 % (1.0-4.0); HEMATOCRIT 29.4 % (37.0-47.0); LYMPH # 1.7 10*3/uL (1.3-4.4); LYMPH % 21.1 % (27.0-41.0); MEAN CELL VOLUME 92.7 fl (81.0-99.0); MEAN CORPUSCULAR HGB 28.7 pg (27.0-31.0); MEAN PLATELET VOLUME 9.4 fl (9.6-12.3); MONO # 0.9 10*3/uL (0.1-1.0); MONO % 10.8 % (3.0-9.0); NEUT % 64.3 % (47.0-73.0); PLATELET COUNT AUTOMATED 339 10*3/uL (130-400); RED BLOOD COUNT 3.17 10*6/uL (4.10-5.10); RED CELL DISTRI WIDTH 13.8 % (0-14.5); WHITE BLOOD COUNT 7.9 10*3/uL (4.8-10.8)
[2021-03-14 14:05] LABS: ALBUMIN 3.1 gm/dl (3.1-4.5); CREATININE 2.21 mg/dL (0.55-1.02); POTASSIUM 3.4 mmol/L (3.5-5.1)
[2021-03-14 14:06] LABS: URIC ACID 11.8 mg/dL (2.6-6.0)
[2021-03-14 15:19] LABS: FERRITIN 288.6 ng/mL (10.0-291.0); PTH INTACT 57.4 pg/mL (18.5-88.0); VITAMIN D, 25-HYDROXY 39.8 ng/mL (30-100)
[2021-03-14 16:46] LABS: BILIRUBIN Negative (Negative); BLOOD Negative (Negative); CLARITY Clear (Clear); COLOR Yellow (Yellow); GLUCOSE Negative (Negative); KETONE Negative (Negative); LEUKO ESTERASE Negative (Negative); NITRITE Negative (Negative); URINE CREATININE RANDOM 36.9 mg/dL; UROBILINOGEN 0.2 E.U./dl (0.0-1.0)
[2021-03-14 17:29] LABS: EPITHELIAL CELLS 16-20; HYALINE CAST 0-2
== END | disposition home or self-care (01) ==
LOC: LAB 12:48
PROVIDERS: ATTEND Internal Medicine Nephrology
DX: N18.30 Chronic kidney disease, stage 3 unspecified (principal); D63.1 Anemia in chronic kidney disease; N25.81 Secondary hyperparathyroidism of renal origin; M10.9 Gout, unspecified; Z79.899 Other long term (current) drug therapy

== ENCOUNTER → 2021-03-23 | Outpatient (CLI) | payer OTHER ==
[2021-03-23 12:38] LABS: BASO # 0.1 10*3/uL (0.0-0.1); BASO % 0.7 % (0.0-1.0); EOS # 0.2 10*3/uL (0.0-0.4); HEMATOCRIT 30.4 % (37.0-47.0); LYMPH # 1.7 10*3/uL (1.3-4.4); LYMPH % 23.3 % (27.0-41.0); MEAN CELL VOLUME 93.8 fl (81.0-99.0); MEAN CORPUSCULAR HGB 29.3 pg (27.0-31.0); MEAN CORPUSCULAR HGB CONC 31.3 g/dl (33.0-37.0); MEAN PLATELET VOLUME 8.5 fl (9.6-12.3); MONO # 0.8 10*3/uL (0.1-1.0); NEUT # 4.5 10*3/uL (2.3-7.9); NEUT % 61.7 % (47.0-73.0); PLATELET COUNT AUTOMATED 319 10*3/uL (130-400); RED BLOOD COUNT 3.24 10*6/uL (4.10-5.10); RED CELL DISTRI WIDTH 14.2 % (0-14.5); WHITE BLOOD COUNT 7.2 10*3/uL (4.8-10.8)
== END | disposition home or self-care (01) ==
LOC: LAB 12:24
PROVIDERS: ATTEND Orthopaedic Surgery
DX: M25.512 Pain in left shoulder (principal)

== ENCOUNTER → 2021-04-09 | Outpatient (CLI) | payer OTHER | END | disposition home or self-care (01) | LOC: NM 09:46 | PROVIDERS: ATTEND Orthopaedic Surgery | DX: T84.091A Other mechanical complication of internal left hip prosthesis, initial encounter (principal); T84.090A Other mechanical complication of internal right hip prosthesis, initial encounter; Z96.612 Presence of left artificial shoulder joint; Z96.611 Presence of right artificial shoulder joint; Z96.643 Presence of artificial hip joint, bilateral ==

== ENCOUNTER → 2021-04-17 | Outpatient (CLI) | payer OTHER ==
[2021-04-17 12:38] LABS: BASO # 0.1 10*3/uL (0.0-0.1); BASO % 0.5 % (0.0-1.0); EOS # 0.2 10*3/uL (0.0-0.4); EOS % 2.3 % (1.0-4.0); HEMATOCRIT 32.1 % (37.0-47.0); LYMPH # 1.9 10*3/uL (1.3-4.4); LYMPH % 20.5 % (27.0-41.0); MEAN CELL VOLUME 91.5 fl (81.0-99.0); MEAN CORPUSCULAR HGB 29.3 pg (27.0-31.0); MEAN CORPUSCULAR HGB CONC 32.1 g/dl (33.0-37.0); MEAN PLATELET VOLUME 8.9 fl (9.6-12.3); MONO # 0.8 10*3/uL (0.1-1.0); MONO % 8.4 % (3.0-9.0); NEUT # 6.2 10*3/uL (2.3-7.9); NEUT % 67.8 % (47.0-73.0); PLATELET COUNT AUTOMATED 384 10*3/uL (130-400); RED BLOOD COUNT 3.51 10*6/uL (4.10-5.10); WHITE BLOOD COUNT 9.1 10*3/uL (4.8-10.8)
== END | disposition home or self-care (01) ==
LOC: LAB 12:16
PROVIDERS: ATTEND Orthopaedic Surgery
DX: R79.9 Abnormal finding of blood chemistry, unspecified (principal)

== ENCOUNTER → 2021-04-26 | Outpatient (CLI) | payer OTHER | END | disposition home or self-care (01) | LOC: LAB 12:29 | PROVIDERS: ATTEND Family Medicine | DX: E11.21 Type 2 diabetes mellitus with diabetic nephropathy (principal) ==

== ENCOUNTER → 2021-06-14 | Outpatient (CLI) | payer OTHER ==
[2021-06-14 16:31] LABS: BILIRUBIN Negative (Negative); BLOOD Negative (Negative); CLARITY Clear (Clear); COLOR Yellow (Yellow); GLUCOSE Negative (Negative); KETONE Negative (Negative); LEUKO ESTERASE Negative (Negative); NITRITE Negative (Negative); PH 5.5 (4.5-8.0); UROBILINOGEN 0.2 E.U./dl (0.0-1.0)
[2021-06-14 16:41] LABS: BACTERIA 1+; RBC 0-2 rbc/hpf (0-2)
[2021-06-14 16:45] LABS: BASO % 0.5 % (0.0-1.0); EOS # 0.2 10*3/uL (0.0-0.4); EOS % 2.1 % (1.0-4.0); HEMATOCRIT 34.6 % (37.0-47.0); LYMPH # 2.1 10*3/uL (1.3-4.4); MEAN CELL VOLUME 95.8 fl (81.0-99.0); MEAN CORPUSCULAR HGB 31.6 pg (27.0-31.0); MEAN CORPUSCULAR HGB CONC 32.9 g/dl (33.0-37.0); MEAN PLATELET VOLUME 9.5 fl (9.6-12.3); MONO # 0.8 10*3/uL (0.1-1.0); MONO % 9.1 % (3.0-9.0); NEUT # 5.5 10*3/uL (2.3-7.9); NEUT % 63.7 % (47.0-73.0); PLATELET COUNT AUTOMATED 317 10*3/uL (130-400); RED BLOOD COUNT 3.61 10*6/uL (4.10-5.10); RED CELL DISTRI WIDTH 16.4 % (0-14.5); WHITE BLOOD COUNT 8.6 10*3/uL (4.8-10.8)
[2021-06-14 17:03] LABS: ALBUMIN 3.3 gm/dl (3.1-4.5); CREATININE 2.23 mg/dL (0.55-1.02); POTASSIUM 3.4 mmol/L (3.5-5.1); URIC ACID 7.4 mg/dL (2.6-6.0)
[2021-06-14 17:15] LABS: VITAMIN D, 25-HYDROXY 30.8 ng/mL (30-100)
[2021-06-14 17:16] LABS: FERRITIN 926.5 ng/mL (10.0-291.0); PTH INTACT 80.9 pg/mL (18.5-88.0)
== END | disposition home or self-care (01) ==
LOC: LAB 15:59
PROVIDERS: ATTEND Internal Medicine Nephrology
DX: N18.30 Chronic kidney disease, stage 3 unspecified (principal); D63.1 Anemia in chronic kidney disease; M10.9 Gout, unspecified; N25.81 Secondary hyperparathyroidism of renal origin; Z79.899 Other long term (current) drug therapy

== ENCOUNTER → 2022-05-03 | Outpatient (CLI) | payer OTHER ==
[2022-05-03 15:18] LABS: BASO % 0.6 % (0.0-1.0); EOS # 0.2 10*3/uL (0.0-0.4); EOS % 3.5 % (1.0-4.0); HEMATOCRIT 30.9 % (37.0-47.0); LYMPH # 1.4 10*3/uL (1.3-4.4); LYMPH % 21.4 % (27.0-41.0); MEAN CELL VOLUME 100.3 fl (81.0-99.0); MEAN CORPUSCULAR HGB 32.5 pg (27.0-31.0); MEAN CORPUSCULAR HGB CONC 32.4 g/dl (33.0-37.0); MEAN PLATELET VOLUME 9.2 fl (9.6-12.3); MONO # 0.7 10*3/uL (0.1-1.0); MONO % 10.2 % (3.0-9.0); NEUT # 4.1 10*3/uL (2.3-7.9); NEUT % 63.8 % (47.0-73.0); PLATELET COUNT AUTOMATED 266 10*3/uL (130-400); RED BLOOD COUNT 3.08 10*6/uL (4.10-5.10); RED CELL DISTRI WIDTH 14.6 % (0-14.5); WHITE BLOOD COUNT 6.4 10*3/uL (4.8-10.8)
[2022-05-03 15:32] LABS: CREATININE 2.62 mg/dL (0.55-1.02); POTASSIUM 3.8 mmol/L (3.5-5.1); URIC ACID 6.9 mg/dL (2.6-6.0)
[2022-05-03 16:15] LABS: VITAMIN D, 25-HYDROXY 54.8 ng/mL (30-100)
[2022-05-03 16:16] LABS: FERRITIN 214.6 ng/mL (10.0-291.0)
== END | disposition home or self-care (01) ==
LOC: LAB 14:39
PROVIDERS: ATTEND Internal Medicine Nephrology
DX: N18.30 Chronic kidney disease, stage 3 unspecified (principal); N25.81 Secondary hyperparathyroidism of renal origin; M10.9 Gout, unspecified; D63.1 Anemia in chronic kidney disease; Z79.899 Other long term (current) drug therapy

== ENCOUNTER → 2022-05-04 | Outpatient (CLI) | payer OTHER ==
[2022-05-04 11:12] LABS: BILIRUBIN Negative (Negative); BLOOD Negative (Negative); CLARITY Clear (Clear); COLOR Yellow (Yellow); GLUCOSE Negative (Negative); KETONE Negative (Negative); LEUKO ESTERASE Trace (Negative); NITRITE Positive (Negative); UROBILINOGEN 0.2 E.U./dl (0.0-1.0)
[2022-05-04 11:19] LABS: URINE CREATININE RANDOM 37.6 mg/dL
[2022-05-04 11:26] LABS: BACTERIA 4+
== END | disposition home or self-care (01) ==
LOC: LAB 10:58
PROVIDERS: ATTEND Internal Medicine Nephrology
DX: N18.30 Chronic kidney disease, stage 3 unspecified (principal); Z79.899 Other long term (current) drug therapy

== ENCOUNTER → 2022-08-27 | Outpatient (CLI) | payer OTHER ==
[~2022-08-27] MED LIST changes: +ALLOPURINOL100 MG PO; +GOOD NEIGHBOR M25 M1 PO; -POTASSIUM CHLO20 ME4 PO; +POTASSIUM CHLOR8 MEQ PO
== END | disposition home or self-care (01) ==
LOC: RAD 14:45
PROVIDERS: ATTEND Internal Medicine
DX: M25.552 Pain in left hip (principal); I70.8 Atherosclerosis of other arteries; Z96.642 Presence of left artificial hip joint

== ENCOUNTER 2022-10-06 20:13 | Emergency (ER) | payer OTHER ==
[~2022-10-06] VITALS: Ht 165.1 cm; Wt 72.6 kg
[2022-10-06 20:16] VITALS: BP 177/54
[2022-10-06 20:38] LABS: BASO % 0.7 % (0.0-1.0); EOS # 0.3 10*3/uL (0.0-0.4); EOS % 5.4 % (1.0-4.0); HEMATOCRIT 30.6 % (37.0-47.0); LYMPH # 0.9 10*3/uL (1.3-4.4); MEAN CELL VOLUME 105.5 fl (81.0-99.0); MEAN CORPUSCULAR HGB 33.1 pg (27.0-31.0); MEAN CORPUSCULAR HGB CONC 31.4 g/dl (33.0-37.0); MEAN PLATELET VOLUME 9.4 fl (9.6-12.3); MONO # 0.5 10*3/uL (0.1-1.0); MONO % 9.3 % (3.0-9.0); NEUT % 69.3 % (47.0-73.0); PLATELET COUNT AUTOMATED 248 10*3/uL (130-400); RED CELL DISTRI WIDTH 14.6 % (0-14.5); WHITE BLOOD COUNT 5.8 10*3/uL (4.8-10.8)
[2022-10-06 21:06] LABS: CREATININE 2.47 mg/dL (0.55-1.02); POTASSIUM 4.3 mmol/L (3.4-5.1); TOTAL PROTEIN 6.7 gm/dL (6.0-8.0)
[2022-10-06 21:10] LABS: BILIRUBIN Negative (Negative); BLOOD Negative (Negative); CLARITY Clear (Clear); COLOR Yellow (Yellow); GLUCOSE Negative (Negative); KETONE Negative (Negative); LEUKO ESTERASE Negative (Negative); NITRITE Negative (Negative); PH 5.5 (4.5-8.0); UROBILINOGEN 0.2 E.U./dl (0.0-1.0)
[2022-10-06 21:32] LABS: RBC 0-2 rbc/hpf (0-2); WBC 0-2 wbc/hpf (0-5)
== END 2022-10-07 01:34 | disposition home or self-care (01) ==
LOC: ED 20:13
PROVIDERS: Internal Medicine
DX: D64.9 Anemia, unspecified (principal); N17.9 Acute kidney failure, unspecified; I11.0 Hypertensive heart disease with heart failure; I50.23 Acute on chronic systolic (congestive) heart failure; K21.9 Gastro-esophageal reflux disease without esophagitis; E11.9 Type 2 diabetes mellitus without complications; I48.91 Unspecified atrial fibrillation; J44.9 Chronic obstructive pulmonary disease, unspecified; Z88.0 Allergy status to penicillin; Z88.1 Allergy status to other antibiotic agents; Z79.899 Other long term (current) drug therapy; Z90.49 Acquired absence of other specified parts of digestive tract; Z90.710 Acquired absence of both cervix and uterus; Z98.890 Other specified postprocedural states

== ENCOUNTER → 2022-11-08 | Outpatient (CLI) | payer OTHER ==
[2022-11-08 14:24] LABS: BASO % 0.4 % (0.0-1.0); EOS # 0.2 10*3/uL (0.0-0.4); EOS % 3.3 % (1.0-4.0); HEMATOCRIT 31.6 % (37.0-47.0); LYMPH # 0.9 10*3/uL (1.3-4.4); LYMPH % 13.6 % (27.0-41.0); MEAN CELL VOLUME 100.6 fl (81.0-99.0); MEAN CORPUSCULAR HGB 31.8 pg (27.0-31.0); MEAN CORPUSCULAR HGB CONC 31.6 g/dl (33.0-37.0); MEAN PLATELET VOLUME 9.3 fl (9.6-12.3); MONO # 0.6 10*3/uL (0.1-1.0); NEUT # 5.1 10*3/uL (2.3-7.9); NEUT % 73.3 % (47.0-73.0); PLATELET COUNT AUTOMATED 310 10*3/uL (130-400); RED BLOOD COUNT 3.14 10*6/uL (4.10-5.10); RED CELL DISTRI WIDTH 13.9 % (0-14.5); WHITE BLOOD COUNT 6.9 10*3/uL (4.8-10.8)
[2022-11-08 14:26] LABS: BILIRUBIN Negative (Negative); BLOOD Negative (Negative); CLARITY Clear (Clear); COLOR Yellow (Yellow); GLUCOSE Negative (Negative); KETONE Negative (Negative); LEUKO ESTERASE Trace (Negative); NITRITE Negative (Negative); PH 5.5 (4.5-8.0); UROBILINOGEN 0.2 E.U./dl (0.0-1.0)
[2022-11-08 14:32] LABS: URINE CREATININE RANDOM 45.43 mg/dL
[2022-11-08 14:39] LABS: POTASSIUM 3.5 mmol/L (3.4-5.1); URIC ACID 7.7 mg/dL (3.1-7.8)
[2022-11-08 14:40] LABS: BACTERIA 1+; CALCIUM OXALATE CRYSTALS 1+; HYALINE CAST 0-2; RBC 0-2 rbc/hpf (0-2)
[2022-11-08 14:43] LABS: VITAMIN D, 25-HYDROXY 65.8 ng/mL (30-100)
== END | disposition home or self-care (01) ==
LOC: LAB 13:41
PROVIDERS: ATTEND Internal Medicine Nephrology
DX: N18.30 Chronic kidney disease, stage 3 unspecified (principal); N25.81 Secondary hyperparathyroidism of renal origin; D63.1 Anemia in chronic kidney disease; M10.9 Gout, unspecified; Z79.899 Other long term (current) drug therapy

== ENCOUNTER → 2022-12-23 | Outpatient (CLI) | payer MEDICARE ==
[~2022-12-23] MED LIST changes: +SOAANZ20 M1 PO
== END | disposition home or self-care (01) ==
LOC: ORTHO 01:23
PROVIDERS: ATTEND Orthopaedic Surgery
DX: M19.041 Primary osteoarthritis, right hand (principal); M25.741 Osteophyte, right hand; M25.841 Other specified joint disorders, right hand

== ENCOUNTER 2022-12-25 23:53 | Emergency (ER) | payer MEDICARE ==
[2022-12-26 00:14] LABS: BASO % 0.4 % (0.0-1.0); EOS # 0.3 10*3/uL (0.0-0.4); EOS % 3.7 % (1.0-4.0); LYMPH # 0.9 10*3/uL (1.3-4.4); MEAN CELL VOLUME 105.1 fl (81.0-99.0); MEAN CORPUSCULAR HGB 31.9 pg (27.0-31.0); MEAN CORPUSCULAR HGB CONC 30.3 g/dl (33.0-37.0); MEAN PLATELET VOLUME 9.6 fl (9.6-12.3); MONO # 0.7 10*3/uL (0.1-1.0); MONO % 8.3 % (3.0-9.0); NEUT # 6.4 10*3/uL (2.3-7.9); NEUT % 76.2 % (47.0-73.0); PLATELET COUNT AUTOMATED 214 10*3/uL (130-400); RED BLOOD COUNT 2.95 10*6/uL (4.10-5.10); RED CELL DISTRI WIDTH 15.5 % (0-14.5); WHITE BLOOD COUNT 8.4 10*3/uL (4.8-10.8)
[2022-12-26 00:31] LABS: POTASSIUM 4.2 mmol/L (3.4-5.1); TOTAL PROTEIN 6.3 gm/dL (6.0-8.0)
[2022-12-26 04:53] VITALS: BP 180/90
== END 2022-12-26 06:05 | disposition home or self-care (01) ==
LOC: ED 23:53
PROVIDERS: Internal Medicine
DX: I13.0 Hypertensive heart and chronic kidney disease with heart failure and stage 1 through stage 4 chronic kidney disease, or unspecified chronic kidney disease (principal); I50.23 Acute on chronic systolic (congestive) heart failure; D64.89 Other specified anemias; N18.9 Chronic kidney disease, unspecified; N17.9 Acute kidney failure, unspecified; J44.9 Chronic obstructive pulmonary disease, unspecified; E11.22 Type 2 diabetes mellitus with diabetic chronic kidney disease; K21.9 Gastro-esophageal reflux disease without esophagitis; I48.91 Unspecified atrial fibrillation; Z88.0 Allergy status to penicillin; Z88.1 Allergy status to other antibiotic agents; Z90.49 Acquired absence of other specified parts of digestive tract; Z90.710 Acquired absence of both cervix and uterus; Z98.890 Other specified postprocedural states; F17.200 Nicotine dependence, unspecified, uncomplicated

== ENCOUNTER → 2023-01-14 | Outpatient (CLI) | payer MEDICARE ==
[~2023-01-14] MED LIST changes: +LEVOFLOXACIN500 MG PO; +MUCINEX ER600 MG PO; +NORVASC5 MG PO
== END | disposition home or self-care (01) ==
LOC: RAD 16:22
PROVIDERS: ATTEND Internal Medicine
DX: J90 Pleural effusion, not elsewhere classified (principal)

== ENCOUNTER → 2023-06-19 | Outpatient (CLI) | payer MEDICARE ==
[~2023-06-19] MED LIST changes: +BENZONATATE100 M1 PO; +COD LIVER OIL1 EAC1 PO; +KLOR-CON M2020 ME1 PO; +LASIX40 MG PO; +NORMODYNE,TRAN100 MG PO
[2023-06-19 14:39] LABS: BASO % 0.4 % (0.0-1.0); EOS # 0.4 10*3/uL (0.0-0.4); EOS % 5.7 % (1.0-4.0); HEMATOCRIT 31.7 % (37.0-47.0); LYMPH # 1.2 10*3/uL (1.3-4.4); LYMPH % 15.9 % (27.0-41.0); MEAN CELL VOLUME 97.8 fl (81.0-99.0); MEAN CORPUSCULAR HGB 31.5 pg (27.0-31.0); MEAN CORPUSCULAR HGB CONC 32.2 g/dl (33.0-37.0); MEAN PLATELET VOLUME 9.3 fl (9.6-12.3); MONO # 0.6 10*3/uL (0.1-1.0); MONO % 8.3 % (3.0-9.0); NEUT # 5.3 10*3/uL (2.3-7.9); NEUT % 68.9 % (47.0-73.0); PLATELET COUNT AUTOMATED 311 10*3/uL (130-400); RED BLOOD COUNT 3.24 10*6/uL (4.10-5.10); RED CELL DISTRI WIDTH 16.2 % (0-14.5); WHITE BLOOD COUNT 7.7 10*3/uL (4.8-10.8)
[2023-06-19 15:19] LABS: POTASSIUM 3.6 mmol/L (3.4-5.1); URIC ACID 6.5 mg/dL (3.1-7.8)
[2023-06-19 15:23] LABS: VITAMIN D, 25-HYDROXY 69.4 ng/mL (30-100)
== END | disposition home or self-care (01) ==
LOC: LAB 14:09
PROVIDERS: ATTEND Internal Medicine Nephrology
DX: N18.4 Chronic kidney disease, stage 4 (severe) (principal); Z79.899 Other long term (current) drug therapy

== ENCOUNTER 2023-07-17 18:09 | Inpatient (IN) | payer MEDICARE ==
[~2023-07-17] VITALS: Ht 157.4 cm; Wt 49.9 kg
[2023-07-17 18:45] VITALS: BP 86/52
[2023-07-17 18:56] LABS: BASO % 0.2 % (0.0-1.0); EOS % 0.1 % (1.0-4.0); HEMATOCRIT 47.4 % (37.0-47.0); LYMPH # 0.9 10*3/uL (1.3-4.4); MEAN CELL VOLUME 99.8 fl (81.0-99.0); MEAN CORPUSCULAR HGB 31.8 pg (27.0-31.0); MEAN CORPUSCULAR HGB CONC 31.9 g/dl (33.0-37.0); MEAN PLATELET VOLUME 10.4 fl (9.6-12.3); MONO # 0.5 10*3/uL (0.1-1.0); MONO % 3.8 % (3.0-9.0); NEUT % 88.2 % (47.0-73.0); NUCLEATED RED BLOOD CELL 0.2 % (0.0-0.0); PLATELET COUNT AUTOMATED 454 10*3/uL (130-400); RED BLOOD COUNT 4.75 10*6/uL (4.10-5.10); RED CELL DISTRI WIDTH 16.1 % (0-14.5); WHITE BLOOD COUNT 12.5 10*3/uL (4.8-10.8)
[2023-07-17 19:11] LABS: ACT PARTIAL THROMBO TIME 26.2 SECONDS (20.0-32.1); INTERNATIONAL NORM RATIO 1.1 (2.0-3.5)
[2023-07-17 19:23] LABS: TOTAL PROTEIN 7.3 gm/dL (6.0-8.0)
[2023-07-17 23:27] VITALS: BP 77/50
[2023-07-18 00:06] LABS: VENOUS PH 7.338 (7.37-7.45)
[2023-07-18 00:07] VITALS: BP 70/40
== END 2023-07-18 01:56 | disposition short-term general hospital (02) | DRG 388 ==
LOC: ED 18:09 → EDHOLD 22:18
PROVIDERS: Emergency Medicine; Student in an Organized Health Care Education/Training Program; ADMIT Internal Medicine; ATTEND Internal Medicine
PROC: 0D9670Z Drainage of Stomach with Drainage Device, Via Natural or Artificial Opening (ICD-10-PCS; principal; 2023-07-17)
DX: K56.609 Unspecified intestinal obstruction, unspecified as to partial versus complete obstruction (principal); N17.0 Acute kidney failure with tubular necrosis; I13.0 Hypertensive heart and chronic kidney disease with heart failure and stage 1 through stage 4 chronic kidney disease, or unspecified chronic kidney disease; E87.20 Acidosis, unspecified; N18.4 Chronic kidney disease, stage 4 (severe); R65.10 Systemic inflammatory response syndrome (SIRS) of non-infectious origin without acute organ dysfunction; I50.32 Chronic diastolic (congestive) heart failure; Z96.643 Presence of artificial hip joint, bilateral; I48.91 Unspecified atrial fibrillation; K21.9 Gastro-esophageal reflux disease without esophagitis; E11.40 Type 2 diabetes mellitus with diabetic neuropathy, unspecified; E03.9 Hypothyroidism, unspecified; E11.51 Type 2 diabetes mellitus with diabetic peripheral angiopathy without gangrene; D75.839 Thrombocytosis, unspecified; E11.22 Type 2 diabetes mellitus with diabetic chronic kidney disease; E11.65 Type 2 diabetes mellitus with hyperglycemia; J43.9 Emphysema, unspecified; I95.89 Other hypotension; E86.1 Hypovolemia; Z88.1 Allergy status to other antibiotic agents; Z88.0 Allergy status to penicillin; Z90.49 Acquired absence of other specified parts of digestive tract; Z90.710 Acquired absence of both cervix and uterus; Z87.891 Personal history of nicotine dependence